=== PATIENT | female | born 1950 | race Caucasian/White ===

== ENCOUNTER 2022-04-09 10:22 | Emergency (ER) | payer MEDICARE, BC, SELFPAY ==
[2022-04-09 10:24] VITALS: BP 154/90; PULSE 79; RESP 18; TEMP 37.4; O2SAT 97; BMI 33.8
[2022-04-09 10:28] VITALS: BP 154/90; PULSE 76; O2SAT 97
--- NOTE | 2022-04-09 11:02 | HMH.EDGENADL ---
ED Disposition Clinical Impression: Dental abscess Disposition: Home, Self-Care Condition on Discharge: Good Instructions: DI for Tooth Abscess Additional Instructions: Stop taking amoxicillin/clavulanic acid. Start clindamycin as prescribed. First dose today at 5 PM. Sleep with your head elevated on several pillows to help reduce swelling. [place] as needed for pain. Follow-up with your dentist next week. Additional instructions for DENTAL PROBLEMS: See a dentist as soon as possible for further evaluation. Return immediately if you have an uncontrollable fever greater than 102 degrees, difficulty breathing or shortness of breath, persistent vomiting, or inability to swallow. Additional instructions for CONTROLLED SUBSTANCES: You have been prescribed a medication that is a controlled substance. Controlled substances include pain medications known as opiates and sedative nerve medications known as benzodiazepines. Tramadol, fioricet, and gabapentin are also controlled substances. Some common opiates include: Codeine (such as Tylenol #3) Hydrocodone (Vicodin, Lortab, Lorcet, [place]) Oxycodone (Percocet, Percodan, Oxycodone, Oxy IR) Some common benzodiazepines include: Diazepam (Valium) Lorazepam (Ativan) Alprazolam (Xanax) Clonazepam (Klonopin) Oxazepam (Serax) All of these controlled substances are highly addictive and frequently abused. Misuse can and frequently does lead to addiction as well as overdose and . Medication should be stored in a locked cabinet or other secure storage unit. Do not store the medication in a motor vehicle. Short term supplies, 3 days or less, are prescribed because of the highly addictive nature of the medication. Any of the controlled substance medication NOT taken should be disposed of properly and NOT SAVED. The recommended method of disposing of unused medications is: Place the medicines in a sealable plastic bag. If the medicine is a solid, crush it or add water to dissolve it. Add something undesirable (cat litter, coffee grounds, etc.) Dispose of sealed bag in household trash Do not flush or pour unused medicines down a sink or drain. Controlled substances should not be shared, given away or sold. Because of the addictive nature and frequent abuse, these medications are sometimes stolen. These medications should be kept in a safe place where they cannot be stolen. Do not keep them in your car or purse. Lost or stolen prescriptions for controlled substances WILL NOT BE REFILLED in this emergency department, regardless of whether a police report was filed. Prescriptions: Hydrocod/Acet 5/325 mg [[place] 5/325mg tablet] 1 tab PO Q6HP PRN #10 tab PRN Reason: Pain Transmission Status: Received by [facility] clindamycin HCL [Clindamycin HCl] 300 mg PO QID #40 cap Transmission Status: Received by [facility] Referrals: Deyanira Jenkins MD [Primary Care Provider] - - Critical Care Critical Care Time: No Attestation: On 04/09/22, the high probability of a clinically significant, sudden or life threatening deterioration of the following system(s) required my full and direct attention, intervention and personal management. The time I documented below is in addition to time spent performing reported procedures but includes the following listed in this critical care notation. Medical Decision Making - Juan Inquiry Pt receiving controlled substance: Yes Juan was queried for this patient: Yes Risks and benefits of using a controlled substance: were discussed with pt by me Vital Signs: 04/09/22 10:24 04/09/22 10:28 04/09/22 11:23 Temperature 99.3 F Temperature Source Oral Pulse Rate 76 71 Pulse Rate [Left Radial] 79 Respiratory Rate 18 18 Blood Pressure 154/90 H 144/78 H Blood Pressure [Left Arm] 154/90 H Blood Pressure Mean 111 104 Blood Pressure Mean [Left Arm] 111 Blood Pressure Source [Left Arm]
--- NOTE | 2022-04-09 11:09 | PC.NURSE ---
ELIAZAR FLORES at
[2022-04-09 11:23] VITALS: BP 144/78; PULSE 71; RESP 18; O2SAT 93
--- NOTE | 2022-04-09 11:50 | PC.NURSE ---
checked on pt at this time, pt resting in bed, given warm blanket. Family at BS. Will continue to monitor
--- NOTE | 2022-04-09 12:37 | PC.NURSE ---
pt reports her teeth are hurting, reports she has not taken anything for pain this morning, states has been taking tylenol and ibuprofen at home. Notified ER MD who gave verbal order for tylenol and ibuprofen po. Pt also states its time for her home dose of lorazepam, notified ER MD who states okay for pt to take her own home medication of lorazepam at this time.
[2022-04-09 13:31] VITALS: BP 152/78; PULSE 78; RESP 18; TEMP 36.6; O2SAT 98
== END 2022-04-09 13:31 | disposition home or self-care (01) ==
PROVIDERS: Emergency Provider Emergency Medicine; PCP Family Medicine
DX: K04.7 Periapical abscess without sinus (principal); Z79.899 Other long term (current) drug therapy
CPT/HCPCS: 96365; 99284

== ENCOUNTER 2022-05-18 22:34 | Emergency (ER) | payer MEDICARE, BC, SELFPAY ==
[2022-05-19 01:22] VITALS: BP 171/104; PULSE 79; RESP 18; TEMP 37.6; O2SAT 97; BMI 27.4
[2022-05-19 01:23] VITALS: BP 170/98; PULSE 79; RESP 18; TEMP 36.8; O2SAT 99
--- NOTE | 2022-05-19 01:57 | HMH.EDWNDL ---
ED Disposition Clinical Impression: Laceration of hand Qualifiers: Encounter type: initial encounter Foreign body presence: without foreign body Laterality: left Qualified Code(s): S61.412A - Laceration without foreign body of left hand, initial encounter Disposition: Home, Self-Care Condition on Discharge: Good Instructions: DI for Laceration Repair Additional Instructions: sutures out 10-12 days Referrals: Deyanira Jenkins MD [Primary Care Provider] - - Critical Care Critical Care Time: No Attestation: On 05/18/22, the high probability of a clinically significant, sudden or life threatening deterioration of the following system(s) required my full and direct attention, intervention and personal management. The time I documented below is in addition to time spent performing reported procedures but includes the following listed in this critical care notation. Medical Decision Making - Medical Records Medical records reviewed: Yes: I reviewed the patient's medical records. - Juan Inquiry Pt receiving controlled substance: No Vital Signs: 05/19/22 01:22 Temperature 99.6 F Temperature Source Oral Pulse Rate [Right] 79 Respiratory Rate 18 Blood Pressure [Right Arm] 171/104 H Blood Pressure Mean [Right Arm] 126 02 Sat by Pulse Oximetry 97 Oxygen Delivery Method Room Air Medical Decision Narrative: sutures out 10 days and recheck if any problems Wound/Laceration HPI - General Chief Complaint: Wound/Laceration Stated Complaint: LAC Time Seen by Provider: 05/19/22 01:57 Mode of Arrival: Ambulatory Source of Information: Patient, Relative, Medical Record Limitations: No Limitations Description of Symptoms (Recalled from ER Triage Doc. by RN): pt arrived in the ER with her son after a fall. pt reports to have fallen in the hallway of her home and got a laceration to her left hand - History of Present Illness HPI narrative: lac at home to lt hand- denied any sig injury from fall except lac Onset (ago): hour(s) Extremity Location: Left: hand Place: home Patient tetanus UTD: No Context: fall Associated symptoms: none - Related Data Home Medications Medication Instructions Recorded Confirmed Escitalopram Oxalate [Lexapro] 20 mg PO BID 11/12/18 04/09/22 LORazepam [Lorazepam 2mg Tablet] 2 mg PO TID 11/12/18 04/09/22 Metoprolol Tartrate [Lopressor 25 mg PO DAILY 11/12/18 04/09/22 25mg tablet] Simvastatin [Zocor] 20 mg PO DAILY 11/12/18 04/09/22 Amoxicillin/Potassium Clav 500 mg PO TID 04/09/22 04/09/22 [Augmentin 500mg tab] Omeprazole [Omeprazole 20mg 20 mg PO DAILY 04/09/22 04/09/22 Capsule] Previous Rx's Medication Instructions Recorded Hydrocod/Acet 5/325 mg [[place] 1 tab PO Q6HP PRN #10 tab 04/09/22 5/325mg tablet] clindamycin HCL [Clindamycin HCl] 300 mg PO QID #40 cap 04/09/22 Allergies Allergy/AdvReac Type Severity Reaction Status Date / Time No Known Allergies Allergy Verified 12/28/18 17:22 [facility] History - Hepatitis A Screen Attestation statement:: This patient has been screened for Hepatitis A risk factors. I have reviewed the patient's past medical history: Yes Medical History: Denies:: Diabetes Mellitus Type 1, Diabetes Mellitus Type 2 - Social History Alcohol Intake: never Occupational Status: other Household Members: other ROS Obtained: Yes All systems reviewed & no additional complaints - Constitutional Constitutional: Denies fever(s) - Eyes Eyes: Denies change in vision - ENT Ears, Nose, Mouth, and Throat: Denies sore throat - Cardiovascular Cardiovascular: Denies chest pain - Respiratory Respiratory: Denies shortness of breath - Gastrointestinal Gastrointestingal: Denies: abdominal pain - Genitourinary Female Genitourinary: Denies hematuria - Musculoskeletal Musculoskeletal: Denies joint pain - Integumentary/Breasts Skin/Breast: Reports as per HPI, Denies rash, Reports other (1 cm v shaped lac )
== END 2022-05-19 00:15 | disposition home or self-care (01) ==
PROVIDERS: Emergency Provider Emergency Medicine; PCP Family Medicine
DX: S61.412A Laceration without foreign body of left hand, initial encounter (principal); Z23 Encounter for immunization; W19.XXXA Unspecified fall, initial encounter; Y92.008 Other place in unspecified non-institutional (private) residence as the place of occurrence of the external cause
CPT/HCPCS: 12001; 90471; 90715; 99283

== ENCOUNTER 2022-05-21 16:24 | Emergency (ER) | payer MEDICARE, BC, SELFPAY ==
[2022-05-21 16:51] VITALS: BP 118/70; PULSE 89; RESP 16; TEMP 37.5; O2SAT 96; BMI 33.3
--- NOTE | 2022-05-21 17:05 | HMH.EDUTC ---
[facility] Disposition Clinical Impression: Exposure to COVID-19 virus, Viral syndrome Disposition: Home, Self-Care Condition on Discharge: Good Instructions: DI for COVID-19 (Suspected or Confirmed ), Preventing the Spread of Coronavirus Discharge Instructions Additional Instructions: Drink plenty of fluids. Take tylenol for pain or fever. Return if you begin to have difficulty breathing. Follow up with your regular doctor. GO TO THE ER FOR ANY WORSENING SYMPTOMS Quarantine until you know the results of your covid-19 test. Notify your school or workplace of your results and follow their instructions regarding return to work/school. Referrals: Deyanira Jenkins MD [Primary Care Provider] - Time of Disposition: 17:14 Medical Decision Making - Medical Records Medical records reviewed: No: I reviewed the patient's medical records. - Juan Inquiry Pt receiving controlled substance: No Vital Signs: 05/21/22 16:51 05/21/22 17:25 Temperature 99.5 F 99.5 F Temperature Source Oral Pulse Rate 89 Pulse Rate [Left] 89 Respiratory Rate 16 16 Blood Pressure 118/70 Blood Pressure [Right Arm] 118/70 Blood Pressure Mean [Right Arm] 86 Blood Pressure Position Sitting 02 Sat by Pulse Oximetry 96 Oxygen Delivery Method Room Air [facility] HPI - General Stated complaint: wants covid test Time Seen by Provider: 05/21/22 17:05 Description of Symptoms (Recalled from Triage Doc. by RN): patient comes in for covid test. patient was exposed but has no symptoms HEENT Symptoms (Recalled from RN notes): No Resp Symptoms (Recalled from RN notes): No Skin Symptoms (Recalled from RN notes): No MS Symptoms (Recalled from RN notes): No Functional Status (Recalled from RN notes): n/a - History of Present Illness Provider Complaint: She states that for the past 4 days she has had chest congestion, body aches and she has felt bad. - Related Data Home Medications Medication Instructions Recorded Confirmed Escitalopram Oxalate [Lexapro] 20 mg PO BID 11/12/18 04/09/22 LORazepam [Lorazepam 2mg Tablet] 2 mg PO TID 11/12/18 04/09/22 Metoprolol Tartrate [Lopressor 25 mg PO DAILY 11/12/18 04/09/22 25mg tablet] Simvastatin [Zocor] 20 mg PO DAILY 11/12/18 04/09/22 Amoxicillin/Potassium Clav 500 mg PO TID 04/09/22 04/09/22 [Augmentin 500mg tab] Omeprazole [Omeprazole 20mg 20 mg PO DAILY 04/09/22 04/09/22 Capsule] Previous Rx's Medication Instructions Recorded Hydrocod/Acet 5/325 mg [[place] 1 tab PO Q6HP PRN #10 tab 04/09/22 5/325mg tablet] clindamycin HCL [Clindamycin HCl] 300 mg PO QID #40 cap 04/09/22 Allergies Allergy/AdvReac Type Severity Reaction Status Date / Time No Known Allergies Allergy Verified 12/28/18 17:22 - Worker's Comp Is this a Worker's Comp case?: No [facility] History - Hepatitis A Screen Attestation statement:: This patient has been screened for Hepatitis A risk factors. I have reviewed the patient's past medical history: Yes Medical History: Denies:: Diabetes Mellitus Type 1, Diabetes Mellitus Type 2 - Social History Alcohol Intake: never Occupational Status: other Household Members: other ROS Obtained: Yes All systems reviewed & no additional complaints - Constitutional Constitutional: Reports as per HPI - Eyes Eyes: Denies eye discharge - ENT Ears, Nose, Mouth, and Throat: Reports as per HPI - Cardiovascular Cardiovascular: Denies chest pain - Respiratory Respiratory: Reports chest congestion, Reports cough Physical Exam - General General appearance: alert, in no apparent distress - Head Head exam: atraumatic, normocephalic, normal inspection - Eye Eye exam: Present: normal appearance, PERRL, EOMI - ENT ENT exam: Present: normal exam, normal oropharynx, mucous membranes moist, TM's normal bilaterally, normal external ear exam - Neck Neck exam: Present: normal inspection, full ROM, trachea midline. Absent: meningis
[2022-05-21 17:25] VITALS: BP 118/70; PULSE 89; RESP 16; TEMP 37.5; O2SAT 96
== END 2022-05-21 17:25 | disposition home or self-care (01) ==
PROVIDERS: Emergency Provider Nurse Practitioner Family; PCP Family Medicine
DX: Z20.822 Contact with and (suspected) exposure to COVID-19 (principal); B34.9 Viral infection, unspecified
CPT/HCPCS: 99212; C9803; G0463; U0003; U0005

== ENCOUNTER 2022-05-28 15:48 | Emergency (ER) | payer MEDICARE, BC, SELFPAY ==
[2022-05-28 15:49] VITALS: BP 176/89; PULSE 83; RESP 17; TEMP 37.1; O2SAT 97; BMI 33.3
[2022-05-28 16:12] VITALS: BP 176/89; PULSE 83; RESP 17; TEMP 37.1; O2SAT 97; BMI 33.3
--- NOTE | 2022-05-28 16:38 | HMH.EDUTC ---
[facility] [place] Clinical Impression: Dental abscess Disposition: Home, Self-Care Condition on Discharge: Good Instructions: Tooth Abscess, Clindamycin Additional Instructions: Take medication as prescribed Follow up with your Dentist for further evaluation and treatment Return if needed Straight to ER if any life threatening symptoms Follow up with your Family Doctor if no improvement Prescriptions: clindamycin HCL [Clindamycin HCl] 300 mg PO Q8H 7 Days #14 cap Transmission Status: Sent to [facility] Ondansetron [Zofran 4mg ODT] 4 mg PO BID PRN #6 tab PRN Reason: Nausea Transmission Status: [facility] to [facility] Referrals: Deyanira Jenkins MD [Primary Care Provider] - As needed Time of Disposition: 16:53 Medical Decision Making - Juan Inquiry Pt receiving controlled substance: No Juan was queried for this patient: No Vital Signs: 05/28/22 15:49 05/28/22 16:12 Temperature 98.7 F 98.7 F Temperature Source Oral Oral Pulse Rate [Left Radial] 83 83 Respiratory Rate 17 17 Blood Pressure [Left Arm] 176/89 H 176/89 H Blood Pressure Mean [Left Arm] 118 118 Blood Pressure Source [Left Arm] Automatic Cuff Automatic Cuff Blood Pressure Position [Left Arm] Sitting Sitting 02 Sat by Pulse Oximetry 97 97 Oxygen Delivery Method Room Air Room Air Orders (Tests/Meds): ORDERS Category Date Time Status Covid-19 Nasal PCR ([facility]) Routine Lab 05/28/22 16:45 Ordered Medical Decision Narrative: medication discussed with pharmacy [facility] [place]PI - General Stated complaint: sick at stomach, cramp Time Seen by Provider: 05/28/22 16:38 Mode of Arrival: Ambulatory Source of Information: Patient Limitations: No Limitations Description of Symptoms (Recalled from Triage Doc. by RN): c/o abdominal pain, tooth infection and suture removal HEENT Symptoms (Recalled from RN notes): Yes Resp Symptoms (Recalled from RN notes): No Skin Symptoms (Recalled from RN notes): No MS Symptoms (Recalled from RN notes): No Functional Status (Recalled from RN notes): na - History of Present Illness Provider Complaint: Patient states that she needed to get her sutures removed but she is also having nausea, nasal congestion and feels like she has another dental infection from broken teeth States that she is going to [facility] to have dental extractions and dentures but hasnt had any yet and most of her bottom teeth are broken and decaying States that also she was around someone last week with [facility] and wanted to get tested - Related Data Home Medications Medication Instructions Recorded Confirmed Escitalopram Oxalate [Lexapro] 20 mg PO BID 11/12/18 04/09/22 LORazepam [Lorazepam 2mg Tablet] 2 mg PO TID 11/12/18 04/09/22 Metoprolol Tartrate [Lopressor 25 mg PO DAILY 11/12/18 04/09/22 25mg tablet] Simvastatin [Zocor] 20 mg PO DAILY 11/12/18 04/09/22 Amoxicillin/Potassium Clav 500 mg PO TID 04/09/22 04/09/22 [Augmentin 500mg tab] Omeprazole [Omeprazole 20mg 20 mg PO DAILY 04/09/22 04/09/22 Capsule] Previous Rx's Medication Instructions Recorded Hydrocod/Acet 5/325 mg [[place] 1 tab PO Q6HP PRN #10 tab 04/09/22 5/325mg tablet] clindamycin HCL [Clindamycin HCl] 300 mg PO QID #40 cap 04/09/22 Ondansetron [Zofran 4mg ODT] 4 mg PO BID PRN #6 tab 05/28/22 clindamycin HCL [Clindamycin HCl] 300 mg PO Q8H 7 Days #14 cap 05/28/22 Allergies Allergy/AdvReac Type Severity Reaction Status Date / Time No Known Allergies Allergy Verified 12/28/18 17:22 - Worker's Comp Is this a Worker's Comp case?: No [facility] History - Hepatitis A Screen Attestation statement:: This patient has been screened for Hepatitis A risk factors. I have reviewed the patient's past medical history: Yes Medical History: Denies:: Diabetes Mellitus Type 1, Diabetes Mellitus Type 2 - Social History Alcohol Intake: never Occupational Status: other Household Members: other ROS Obtained: Yes All systems review
[2022-05-28 17:18] VITALS: BP 176/89; PULSE 83; RESP 17; TEMP 37.1; O2SAT 97
== END 2022-05-28 17:19 | disposition home or self-care (01) ==
PROVIDERS: Emergency Provider Nurse Practitioner; PCP Family Medicine
DX: K04.7 Periapical abscess without sinus (principal); S02.5XXA Fracture of tooth (traumatic), initial encounter for closed fracture; R10.9 Unspecified abdominal pain; R11.0 Nausea; R09.81 Nasal congestion; Z20.822 Contact with and (suspected) exposure to COVID-19; Z48.02 Encounter for removal of sutures
CPT/HCPCS: 99213; C9803; G0463; U0003; U0005

== ENCOUNTER 2022-05-30 22:22 | Emergency (ER) | payer MEDICARE, BC, SELFPAY ==
[2022-05-30 22:23] VITALS: BP 122/82; PULSE 79; RESP 16; TEMP 37.2; O2SAT 93; BMI 33.3
[2022-05-31] VITALS (7 sets, daily range): BP systolic 116–139; BP diastolic 74–107; PULSE 76–85; RESP 18; TEMP 36.8; O2SAT 93–99
[2022-05-31 00:03] LABS: Microscopic, Urine URINE MICROSCOPIC (MICROSCOPIC)
[2022-05-31 00:08] LABS: Potassium 4.2 mmoL/L (3.5-5.1); Sodium 139 mmol/L (136-145)
[2022-05-31 00:10] LABS: Alanine Aminotransferase 18 U/L (12-78); Albumin Level 4.1 g/dl (3.5-5.0); Albumin/Globulin Ratio 1.4 (1.1-1.8); Alkaline Phosphatase 70 U/L (38-126); Aspartate Amino Transferase 26 U/L (14-36); Bilirubin,Total 0.7 mg/dl (0.2-1.3); Blood Urea Nitrogen 15 mg/dl (7-17); Carbon Dioxide 30 mmol/L (22.0-30.0); Creatinine Clearance Estimated 71 mL/min (50-200); Estimated Glomerular Filt Rate 55 ml/min (>60); GFR (African American) 67 ML/MIN (>60); Total Protein,Serum 7.1 g/dl (6.3-8.2)
[2022-05-31 00:11] LABS: Appearance,Urine CLEAR (Clear); Bilirubin,Urine Negative (Negative); Blood, Urine Negative (Negative); Calcium 9.2 mg/dl (8.4-10.2); Color,Urine YELLOW (Yellow); Glucose 119 mg/dl (74-100); Glucose,Urine (UA) Negative (Negative); Ketones,Urine Negative (Negative); Lactic Acid 1.2 mmol/L (0.7-2.1); Leukocyte Esterase,Urine Negative (Negative); Nitrate,Urine Negative (Negative); PH,Urine 5.5 (5.0-8.5); Protein,Urine Negative (Negative); Specific Gravity, Urine 1.025 (1.005-1.030); Urobilinogen,Urine 0.2 EU/dl (0.2)
[2022-05-31 00:13] LABS: Basophils # 0.1 K/mm3 (0-0.2); Basophils % 0.8 % (0.1-2.0); Eosinophils # 0.1 K/mm3 (0.0-0.4); Eosinophils % 0.8 % (0.1-12.0); Hematocrit 41.6 % (37.0-47.0); Hemoglobin 13.4 g/dL (12.2-16.2); Lymphocytes # 1.8 K/mm3 (0.7-4.5); Lymphocytes % 21.3 % (10-50); Mean Corpuscular HGB Conc 32.2 g/dL (31.8-35.4); Mean Corpuscular Hemoglobin 28.6 pg (27.0-31.2); Mean Corpuscular Volume 88.8 fl (81-99); Mean Platelet Volume 8.2 fl (7.4-10.4); Monocytes # 0.4 K/mm3 (0.1-1.0); Monocytes % 4.4 % (1.7-9.3); Neutrophils # 6.1 K/mm3 (1.8-7.8); Neutrophils % 72.7 % (37.0-80.0); Platelet Count 248 K/mm3 (142-424); Red Blood Count 4.69 M/mm3 (4.20-5.40); White Blood Count 8.4 K/mm3 (4.8-10.8)
[2022-05-31 00:21] LABS: Bacteria,Urine Trace /lpf; WBC,Urine Occasional #/hpf (0-3)
[2022-05-31 00:39] LABS: Erythrocyte Sedimentation Rate 14 mm/hr (0-30)
[2022-05-31 00:52] LABS: Anion Gap 8.2 mEq/L (5-15); Chloride 105 mmol/L (98-107)
[2022-05-31 01:13] LABS: Procalcitonin 0.035 ng/mL (0.0-2.0)
--- NOTE | 2022-05-31 02:45 | PC.NURSE ---
Patient is currently speaking to regarding current condition and possible plan of care.
--- NOTE | 2022-05-31 02:47 | HMH.EDPSYCH ---
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 The time I documented below is in addition to time spent performing reported procedures but includes the following listed in this critical care notation. Medical Decision Making - Medical Records Medical records reviewed: Yes: I reviewed the patient's medical records. - Juan Inquiry Pt receiving controlled substance: No Vital Signs: 05/30/22 22:23 05/31/22 00:00 05/31/22 00:30 Temperature 99 F Temperature Source Oral Pulse Rate 76 78 Pulse Rate [Right] 79 Respiratory Rate 16 Blood Pressure 122/74 120/75 Blood Pressure [Right Arm] 122/82 Blood Pressure Mean [Right Arm] 95 02 Sat by Pulse Oximetry 93 L 93 L 93 L Oxygen Delivery Method Room Air 05/31/22 01:00 05/31/22 01:30 Temperature Temperature Source Pulse Rate 79 79 Pulse Rate [Right] Respiratory Rate Blood Pressure 116/77 119/77 Blood Pressure [Right Arm] Blood Pressure Mean [Right Arm] 02 Sat by Pulse Oximetry 94 L 93 L Oxygen Delivery Method - Lab Data Lab results reviewed: Yes: I reviewed the patient's lab results. Lab Results 05/30/22 23:30: Urine Color Yellow, Urine Appearance Clear, Urine pH 5.5, Ur Specific [place] 1.025, Urine Protein Negative, Urine Glucose (UA) Negative, Urine Ketones Negative, Urine Blood Negative, Urine Nitrate Negative, Urine Bilirubin Negative, Urine Urobilinogen 0.2, Ur Leukocyte Esterase Negative, Urine RBC None, Urine WBC Occasional, Ur Squamous Epith Cells 5-10, Urine Bacteria Trace 05/30/22 23:30: WBC 8.4, RBC 4.69, Hgb 13.4, Hct 41.6, MCV 88.8, MCH 28.6, MCHC 32.2, RDW 13.0, Plt Count 248, MPV 8.2, Neut % (Auto) 72.7, Lymph % (Auto) 21.3, [place] % (Auto) 4.4, Eos % (Auto) 0.8, Baso % (Auto) 0.8, Neut # (Auto) 6.1, Lymph # (Auto) 1.8, [place] # (Auto) 0.4, Eos # (Auto) 0.1, Baso # (Auto) 0.1, ESR 14 05/30/22 23:30: Sodium 139, Potassium 4.2, Chloride 105, Carbon Dioxide 30, Anion Gap 8.2, BUN 15, Creatinine 1.00, Estimated Creat Clear 71, Estimated GFR 55 L, Est GFR ( Amer) 67, Glucose 119 H, Calcium 9.2, Total Bilirubin 0.7, AST 26, ALT 18, Alkaline Phosphatase 70, Total Protein 7.1, Albumin 4.1, Globulin 3.0, Albumin/Globulin Ratio 1.4, Procalcitonin 0.035 05/30/22 23:30: Lactate 1.2 Result diagrams: 05/30/22 23:30 05/30/22 23:30 Orders (Tests/Meds): ED MEDICATIONS Generic Name Dose Route Start Last Admin Trade Name Freq PRN Reason Stop Dose Admin Sodium Chloride 1,000 mls @ 999 mls/hr 05/31/22 02:45 Sod Chlor 0.9% 1000ml Bag IV 05/31/22 03:45 .Q1H1M [facility] ORDERS Category Date Time Status Diarrhea 23 Panel, PCR Stat Lab 05/31/22 00:46 Ordered Rapid PCR Covid and Flu A/B Stat Lab 05/30/22 23:56 Ordered Blood Culture Stat Micro 05/31/22 01:00 Received Medical Decision Narrative: pt with prob depression with psychotic features and will need eval by joey arellano Psych HPI - General Chief Complaint: Psychiatric Symptoms Stated Complaint: possible reaction to medication; hallucinations Time Seen by Provider: 05/31/22 02:47 Mode of Arrival: Ambulatory Source of Information: [facility]
[2022-05-31 03:17] LABS: Ethyl Alcohol < 10 mg/dl (0-10)
[2022-05-31 03:18] LABS: Acetaminophen < 10 ug/ml (10-30); Salicylate < 1.0 mg/dL (2.0-20.0)
[2022-05-31 03:22] LABS: Barbiturates Screen,Urine Negative ng/ml (<200)
[2022-05-31 03:23] LABS: Amphetamine/Metha Screen,Urine Negative ng/ml (<1000); Benzodiazepines Screen,Urine Negative ng/ml (<200)
[2022-05-31 03:24] LABS: Cannabinoid Screen,Urine Negative ng/ml (<50)
[2022-05-31 03:25] LABS: Cocaine Screen,Urine Negative ng/ml (<300); Methadone Screen,Urine Negative ng/ml (<300)
[2022-05-31 03:26] LABS: Opiate Screen,Urine Negative ng/ml (<300); Phencyclidine Screen,Urine Negative ng/ml (<25)
[2022-05-31 03:46] LABS: T4 (Thyroxine) 9.3 ug/dl (5.53-11.0)
[2022-05-31 03:59] LABS: Thyroid Stimulating Hormone 3.22 uIU/mL (0.465-4.68)
== END 2022-05-31 03:27 | disposition home or self-care (01) ==
PROVIDERS: Emergency Provider Emergency Medicine; PCP Family Medicine
DX: F32.3 Major depressive disorder, single episode, severe with psychotic features (principal); Z79.899 Other long term (current) drug therapy
CPT/HCPCS: 80053; 80305; 80329; 81001; 83605; 84145; 84436; 84443; 85025; 85651; 87040; 99283

== ENCOUNTER 2022-06-09 12:10 | Emergency (ER) | payer MEDICARE, BC, SELFPAY ==
[2022-06-09] VITALS (7 sets, daily range): BP systolic 117–146; BP diastolic 52–84; PULSE 70–92; RESP 16–17; TEMP 36.6; O2SAT 94–96; BMI 32.5
--- NOTE | 2022-06-09 12:46 | HMH.EDGENADL ---
ED Disposition Clinical Impression: Auditory hallucinations Disposition: Home, Self-Care Condition on Discharge: Good Instructions: DI for Altered Mental Status Additional Instructions: Please keep your scheduled follow-up with psychiatry Prescriptions: risperiDONE [Risperdal 0.25mg Tablet] 0.25 mg PO DAILY #30 tab Transmission Status: Pending to [facility] Referrals: Deyanira Jenkins MD [Primary Care Provider] - - Critical Care Critical Care Time: No Attestation: On 06/09/22, the high probability of a clinically significant, sudden or life threatening deterioration of the following system(s) required my full and direct attention, intervention and personal management. The time I documented below is in addition to time spent performing reported procedures but includes the following listed in this critical care notation. Medical Decision Making - Juan Inquiry Pt receiving controlled substance: No Vital Signs: 06/09/22 12:24 06/09/22 12:30 06/09/22 13:00 Temperature 97.9 F Temperature Source Oral Pulse Rate 85 81 Pulse Rate [Left Radial] 92 H Respiratory Rate 17 16 Blood Pressure 146/84 H Blood Pressure [Right Arm] 140/52 L Blood Pressure Mean 104 Blood Pressure Mean [Right Arm] 81 02 Sat by Pulse Oximetry 94 L 96 95 Oxygen Delivery Method Room Air 06/09/22 13:30 06/09/22 14:00 06/09/22 14:30 Temperature Temperature Source Pulse Rate 76 70 71 Pulse Rate [Left Radial] Respiratory Rate 16 Blood Pressure 124/71 117/72 126/84 Blood Pressure [Right Arm] Blood Pressure Mean 90 88 94 Blood Pressure Mean [Right Arm] 02 Sat by Pulse Oximetry 95 95 95 Oxygen Delivery Method - Lab Data Lab Results 06/09/22 13:04: Urine Color Yellow, Urine Appearance Clear, Urine pH 5.5, Ur Specific [place] 1.020, Urine Protein Negative, Urine Glucose (UA) Negative, Urine Ketones Trace, Urine Blood Negative, Urine Nitrate Negative, Urine Bilirubin Negative, Urine Urobilinogen 1.0, Ur Leukocyte Esterase Trace, Urine RBC None, Urine WBC Occasional, Ur Squamous Epith Cells Occasional, Urine Bacteria Trace Orders (Tests/Meds): ED MEDICATIONS Discontinued Medications Generic Name Dose Route Start Last Admin Trade Name Freq PRN Reason Stop Dose Admin Lidocaine 2 each 06/09/22 12:47 06/09/22 12:59 Lidocaine 5% Transdermal Patch TP 06/09/22 12:48 2 each ONCE ONE Administration ORDERS Category Date Time Status Consult to Behavioral Health [CONS] Stat Cons 06/09/22 12:34 Active Medical Decision Narrative: In review this is a 71-year-old female who presents with auditory hallucinations. She also complains of bilateral hip pain that is most tender over the right greater trochanter. We will treat this with a lidocaine patch and I recommended following up with her PCP in order to set up possible injections. For her auditory hallucinations we did talk with behavioral health team who agreed to come and evaluate the patient. She does not have any suicidal or homicidal ideation so do not think she needs an involuntary hold at this time. Evaluated by the behavioral health team who recommended starting the patient on Risperdal 0.25 mg daily and they will see her for her appointment in a few weeks. Patient is agreeable this plan. Stable for discharge. Return precautions given. General Adult HPI - General Chief complaint: Altered Mental Status Stated complaint: sore hips, feels like loosing her mind Time Seen by Provider: 06/09/22 13:00 Mode of Arrival: Ambulatory Limitations: No Limitations Description of Symptoms (Recalled from ER Triage Doc. by RN): pt to ed c/o joint pain and confusion. pt states she had a fall x2 weeks ago that she was seen and evaluated for. pt states since then she has had joint pain in her hips, knees and lower back.pt denies hitting her head. pt states she is anxious. per son at the bedside, he states she has been having visual [place]
--- NOTE | 2022-06-09 13:00 | PC.NURSE ---
spoke with behavioral health who states she will try to come see pt for consult, dependent on clinic availability.
--- NOTE | 2022-06-09 13:01 | PC.NURSE ---
pt ambulating to restroom
--- NOTE | 2022-06-09 13:01 | PC.NURSE ---
pt up to bathroom getting a urine sample
--- NOTE | 2022-06-09 13:02 | PC.NURSE ---
pt ambulatory to restroom
[2022-06-09 13:16] LABS: Microscopic, Urine URINE MICROSCOPIC (MICROSCOPIC)
[2022-06-09 13:19] LABS: Appearance,Urine CLEAR (Clear); Bilirubin,Urine Negative (Negative); Blood, Urine Negative (Negative); Color,Urine YELLOW (Yellow); Glucose,Urine (UA) Negative (Negative); Ketones,Urine TRACE (Negative); Leukocyte Esterase,Urine TRACE (Negative); Nitrate,Urine Negative (Negative); PH,Urine 5.5 (5.0-8.5); Protein,Urine Negative (Negative)
[2022-06-09 13:38] LABS: Bacteria,Urine Trace /lpf; Squamous Epithelial Cell,Urine Occasional #/hpf (0-5); WBC,Urine Occasional #/hpf (0-3)
--- NOTE | 2022-06-09 14:22 | PC.NURSE ---
behavioral health CIPHER EXPERT at the bedside
--- NOTE | 2022-06-09 14:26 | PC.NURSE ---
rounded on pt, behavioral health at bs
--- NOTE | 2022-06-10 15:23 | HMH.BHCONS ---
*Admission Date: 06/09/22 *Reason for consult:: hallucinations *History of present illness: I saw patient on 06/09/2022. -she was in the ER; [facility] -her son is at bedside with her She states that she is here for hearing voices. this has been going on for about 10 days now. -she hears full conversations -it is a man and a woman -talking to each other -the woman she doesn't know -the man sounds like her husbands voice -the male voice talks to patient; says ugly things to her -that she is 40 pounds overweight; that her hair style looks terrible on her -things that he would never to say to her when he was living She states that her son will get mad at her. -cause she asks him if he can hear them -he can't -and this agitates him; cause she asks over and over -she is not getting any sleep -she states that they keep her up cause of their talking She states that the noises started out as just being her fan in her room. -started out at night only -this started maybe 2-3 months ago -she would hear her grandfather; mumbling -then she heard people outside -when she turned off her fan; it stopped -but now it is all the time when she is at home -she hasn't heard them since she has been here in the ER Her 3 years ago. -he had cancer; was since since 2013 -but he was on a new medicine and this progressed his decline -he had COPD and lung cancer -He June 11, 2019 -his birthday just passed; on April 20 -their wedding anniversary was May 11 -then her dog on her husbands 1 year anniversary -so she has a lot going on She states that she was not here at the hospital when her . -her and her son had gone home for a rest and to shower and things -and she is glad they were not here -she doesn't think that she would have been able to see it -but she misses him like crazy She states that she doesn't go visit the grave sight. -has told her son that she doesn't want to either -cause she knows he is gone -but she can hear him again She has been on psychotropic medicines for years; she estimates she has been on the following medicines for 14 years. -Ativan 2mg TID -Lexapro 20mg BID RECOMMENDATIONS: 1. She already has an appointment scheduled in the special clinic to see myself on 07/02/2022; keep this appointment. 2. Start Risperdal 0.25mg BID for hallucinations. -I did discuss this with them -discussed risks and benefits -she is willing to try this until she comes to my office -discussed this with the ER doctor; he will send in a prescription for her. TIME IN: 1410 TIME OUT: [facility] History Medical History: Denies:: Diabetes Mellitus Type 1, Diabetes Mellitus Type 2 *Have you ever received a pneumonia vaccine?: Yes *Have you received a flu vaccine this season?: Yes - *Social History Smoking Status: Unknown if ever smoked Alcohol Intake: never *Occupational Status:: other Household Members: other *Travel in the last 8 weeks: None Family Hx:: Unable to obtain Meds Home Medications Medication Instructions Recorded Confirmed Type Escitalopram Oxalate [Lexapro] 20 mg PO BID 11/12/18 04/09/22 History LORazepam [Lorazepam 2mg Tablet] 2 mg PO TID 11/12/18 04/09/22 History Metoprolol Tartrate [Lopressor 25 mg PO DAILY 11/12/18 04/09/22 History 25mg tablet] Simvastatin [Zocor] 20 mg PO DAILY 11/12/18 04/09/22 History Amoxicillin/Potassium Clav 500 mg PO TID 04/09/22 04/09/22 History [Augmentin 500mg tab] Hydrocod/Acet 5/325 mg [[place] 1 tab PO Q6HP PRN #10 tab 04/09/22 Rx 5/325mg tablet] Omeprazole [Omeprazole 20mg 20 mg PO DAILY 04/09/22 04/09/22 History Capsule] clindamycin HCL [Clindamycin HCl] 300 mg PO QID #40 cap 04/09/22 Rx Ondansetron [Zofran 4mg ODT] 4 mg PO BID PRN #6 tab 05/28/22 Rx clindamycin HCL [Clindamycin HCl] 300 mg PO Q8H 7 Days #14 cap 05/28/22 Rx risperiDONE [Risperdal 0.25mg 0.25 mg PO DAILY #30 tab 06/09/22 Rx
== END 2022-06-09 15:05 | disposition home or self-care (01) ==
PROVIDERS: Emergency Provider Student in an Organized Health Care Education/Training Program; PCP Family Medicine
DX: R44.0 Auditory hallucinations (principal); M25.552 Pain in left hip; M25.551 Pain in right hip
CPT/HCPCS: 81001; 99283

== ENCOUNTER 2022-06-16 00:33 | Emergency (ER) | payer MEDICARE, BC, SELFPAY ==
[2022-06-16 00:34] VITALS: BP 147/94; PULSE 99; RESP 18; TEMP 36.8; O2SAT 96; BMI 31.6
[2022-06-16 00:36] VITALS: BMI 27.4
--- NOTE | 2022-06-16 00:38 | CT_ITS ---
PROCEDURE INFORMATION: Exam: CT Head Without Contrast Exam date and time: 06/16/2022 12:49 AM Age: 71 years old Clinical indication: Altered mental status/memory loss; Other: Auditory/visual hallucinations; Additional info: AMS, auditory visual hallucinations TECHNIQUE: Imaging protocol: Computed tomography of the head without contrast. Radiation optimization: All CT scans at this facility use at least one of these dose optimization techniques: automated exposure control; mA and/or kV adjustment per patient size (includes targeted exams where dose is matched to clinical indication); or iterative reconstruction. COMPARISON: No relevant prior studies available. FINDINGS: Brain: Jorf-kg-ldirrhue atrophy. No intracranial hemorrhage. No mass. Few apparent scattered subtle foci of decreased attenuation within periventricular/subcortical white matter. Probable chronic lacunar infarcts about basal ganglia. No definite edema. Cerebral ventricles: No hydrocephalus. Paranasal sinuses: No acute sinusitis. Mastoid air cells: No significant effusion. Orbital cavities: Unremarkable as visualized. Bones/joints: No acute fracture. Soft tissues: Unremarkable. Vasculature: Mild atherosclerotic disease of intracranial arteries. IMPRESSION: Probable chronic microvascular ischemic changes. If symptoms persist, consider MRI.
--- NOTE | 2022-06-16 00:45 | ECG_ITS ---
APPROVED REPORT Exam: Resting ECG HR:92 bpm ECG Measurements Heart Rate 92 AXES ND 141 P 17 QRSd 88 QRS 27 QT 363 T 7 QTc [address] DEVIATION AND MODERATE T-WAVE ABNORMALITY, CONSIDER ANTEROLATERAL ISCHEMIA [-0.1+ mV T-WAVE IN V3-V6] ABNORMAL ECG UNCONFIRMED REPORT Electronically signed by : Desmond Everett MD 06/16/2022 21:00:33
[2022-06-16 01:10] LABS: Microscopic, Urine URINE MICROSCOPIC (MICROSCOPIC)
--- NOTE | 2022-06-16 01:10 | PC.NURSE ---
PT AND FAMILY UPDATED WITH PLAN OF CARE. FAMILY STATES PRIOR PRIOR TO MAY 30, 2022- PT HAD NEVER HAD VISUAL OR AUDITORY HALLUCINATIONS.
[2022-06-16 01:12] LABS: Appearance,Urine CLEAR (Clear); Bilirubin,Urine Negative (Negative); Blood, Urine TRACE-I (Negative); Color,Urine YELLOW (Yellow); Glucose,Urine (UA) Negative (Negative); Ketones,Urine Negative (Negative); Leukocyte Esterase,Urine 1+ (Negative); Nitrate,Urine Negative (Negative); Protein,Urine Negative (Negative); Specific Gravity, Urine 1.025 (1.005-1.030); Urobilinogen,Urine 0.2 EU/dl (0.2)
--- NOTE | 2022-06-16 01:12 | PC.NURSE ---
URINE SAMPLE AND COVID SWAB COLLECTION PERFORMED. PT TOLERATED WELL.
--- NOTE | 2022-06-16 01:27 | HMH.EDPSYCH ---
ED Disposition Clinical Impression: Acute psychosis UTI (urinary tract infection) Qualifiers: Urinary tract infection type: site unspecified Hematuria presence: without hematuria Qualified Code(s): N39.0 - Urinary tract infection, site not specified Disposition: Home, Self-Care Condition on Discharge: Good Instructions: DI for Urinary Tract Infection (UTI), DI for Psychosis Additional Instructions: use meds and call pcp for follow up Prescriptions: levoFLOXacin [Levaquin 500mg tab] 500 mg PO DAILY #7 tab Transmission Status: Sent to [facility] Referrals: Deyanira Jenkins MD [Primary Care Provider] - - Critical Care Critical Care Time: No Attestation: On 06/16/22, the high probability of a clinically significant, sudden or life threatening deterioration of the following system(s) required my full and direct attention, intervention and personal management. The time I documented below is in addition to time spent performing reported procedures but includes the following listed in this critical care notation. Medical Decision Making - Medical Records Medical records reviewed: Yes: I reviewed the patient's medical records. - Juan Inquiry Pt receiving controlled substance: No Vital Signs: 06/16/22 00:34 06/16/22 02:11 Temperature 98.3 F 98.1 F Temperature Source Oral Oral Pulse Rate 78 Pulse Rate [Left Radial] 99 H Respiratory Rate 18 16 Blood Pressure 139/79 Blood Pressure [Right Arm] 147/94 H Blood Pressure Mean [Right Arm] 111 Blood Pressure Source Automatic Cuff Blood Pressure Source [Right Arm] Automatic Cuff Blood Pressure Position Sitting Blood Pressure Position [Right Arm] Sitting 02 Sat by Pulse Oximetry 96 Oxygen Delivery Method Room Air Room Air - Lab Data Lab results reviewed: Yes: I reviewed the patient's lab results. Lab Results 06/16/22 01:03: Urine Color Yellow, Urine Appearance Clear, Urine pH 6.0, Ur Specific [place] 1.025, Urine Protein Negative, Urine Glucose (UA) Negative, Urine Ketones Negative, Urine Blood Trace-i, Urine Nitrate Negative, Urine Bilirubin Negative, Urine Urobilinogen 0.2, Ur Leukocyte Esterase 1+ A, Urine RBC 5-10, Urine WBC 20-50, Ur Squamous Epith Cells 3-5, Urine Bacteria 1+, Urine Mucus 1+ 06/16/22 01:20: ESR 21 06/16/22 01:20: C-Reactive Protein 6.4 H, Procalcitonin 0.043, Salicylates < 1.0 L, Acetaminophen < 10 L 06/16/22 01:20: SARS-CoV-2 (PCR) Not detected, Influenza A Untype (PCR) Not detected, Influenza Type B (PCR) Not detected 06/16/22 01:20: WBC 6.2, RBC 4.47, Hgb 12.8, Hct 42.2, MCV 94.3, MCH 28.5, MCHC 30.2 L, RDW 13.7, Plt Count 243, MPV 8.6, Neut % (Auto) 67.5, Lymph % (Auto) 24.9, [place] % (Auto) 5.4, Eos % (Auto) 1.3, Baso % (Auto) 0.9, Neut # (Auto) 4.2, Lymph # (Auto) 1.5, [place] # (Auto) 0.3, Eos # (Auto) 0.1, Baso # (Auto) 0.1 06/16/22 01:20: Sodium 140, Potassium 3.8, Chloride 108 H, Carbon Dioxide 28, Anion Gap 7.8, BUN 12, Creatinine 0.90, Estimated Creat Clear 57, Estimated GFR 62, Est GFR ( Amer) 75, Glucose 115 H, Calcium 8.8, Total Bilirubin 0.5, AST 26, ALT 18, Alkaline Phosphatase 68, Total Protein 6.6, Albumin 3.8, Globulin 2.8, Albumin/Globulin Ratio 1.4 06/16/22 01:20: Plasma/Serum Alcohol < 10 06/16/22 01:20: Total Bilirubin 0.5, Direct Bilirubin 0.1, Conjugated Bilirubin 0.0, Indirect Bilirubin 0.4, Unconjugated Bilirubin 0.4, AST 25, ALT 18, Alkaline Phosphatase 68, Total Protein 6.6, Albumin 3.8 Result diagrams: 06/16/22 01:20 06/16/22 01:20 Orders (Tests/Meds): ED MEDICATIONS Generic Name Dose Route Start Last Admin Trade Name Freq PRN Reason Stop Dose Admin Sodium Chloride 1,000 mls @ 999 mls/hr 06/16/22 00:45 06/16/22 01:25 Sod Chlor 0.9% 1000ml Bag IV 06/16/22 01:45 999 mls/hr .Q1H1M JOCELYN Administration Ceftriaxone Sodium 1 gm/ 50 mls @ 100 mls/hr 06/16/22 02:15 06/16/22 02:09 Sodium Chloride IV 06/30/22 02:14 100 mls/hr Q24H JOCELYN Administration ORDERS Category Date T
[2022-06-16 01:30] LABS: Coronavirus 19, PCR Not Detected (NotDetected); Influenza A, PCR Not Detected (NotDetected); Influenza B, PCR Not Detected (NotDetected)
[2022-06-16 01:31] LABS: Basophils # 0.1 K/mm3 (0-0.2); Basophils % 0.9 % (0.1-2.0); Eosinophils # 0.1 K/mm3 (0.0-0.4); Eosinophils % 1.3 % (0.1-12.0); Hematocrit 42.2 % (37.0-47.0); Hemoglobin 12.8 g/dL (12.2-16.2); Lymphocytes # 1.5 K/mm3 (0.7-4.5); Lymphocytes % 24.9 % (10-50); Mean Corpuscular HGB Conc 30.2 g/dL (31.8-35.4); Mean Corpuscular Hemoglobin 28.5 pg (27.0-31.2); Mean Corpuscular Volume 94.3 fl (81-99); Mean Platelet Volume 8.6 fl (7.4-10.4); Monocytes # 0.3 K/mm3 (0.1-1.0); Monocytes % 5.4 % (1.7-9.3); Neutrophils # 4.2 K/mm3 (1.8-7.8); Neutrophils % 67.5 % (37.0-80.0); Platelet Count 243 K/mm3 (142-424); Red Blood Count 4.47 M/mm3 (4.20-5.40); Red Cell Distribution Width 13.7 % (11.5-17.5); White Blood Count 6.2 K/mm3 (4.8-10.8)
[2022-06-16 01:35] LABS: WBC,Urine 20-50 #/hpf (0-3)
[2022-06-16 01:36] LABS: Bacteria,Urine 1+ /lpf; Mucus,Urine 1+ /lpf
[2022-06-16 01:42] LABS: Alanine Aminotransferase 18 U/L (12-78); Albumin Level 3.8 g/dl (3.5-5.0); Alkaline Phosphatase 68 U/L (38-126); Aspartate Amino Transferase 25 U/L (14-36); Bilirubin,Direct 0.1 mg/dl (0.0-0.4); Bilirubin,Indirect 0.4 mg/dL (0.0-0.9); Bilirubin,Total 0.5 mg/dl (0.2-1.3); Bilirubin,Unconjugated 0.4 mg/dL (0.0-1.1); Total Protein,Serum 6.6 g/dl (6.3-8.2)
[2022-06-16 01:43] LABS: Amphetamine/Metha Screen,Urine Negative ng/ml (<1000)
[2022-06-16 01:43] LABS: Acetaminophen < 10 ug/ml (10-30); Alanine Aminotransferase 18 U/L (12-78); Albumin Level 3.8 g/dl (3.5-5.0); Albumin/Globulin Ratio 1.4 (1.1-1.8); Alkaline Phosphatase 68 U/L (38-126); Anion Gap 7.8 mEq/L (5-15); Aspartate Amino Transferase 26 U/L (14-36); Bilirubin,Total 0.5 mg/dl (0.2-1.3); Blood Urea Nitrogen 12 mg/dl (7-17); Calcium 8.8 mg/dl (8.4-10.2); Carbon Dioxide 28 mmol/L (22.0-30.0); Chloride 108 mmol/L (98-107); Creatinine Clearance Estimated 57 mL/min (50-200); Estimated Glomerular Filt Rate 62 ml/min (>60); Ethyl Alcohol < 10 mg/dl (0-10); GFR (African American) 75 ML/MIN (>60); Globulin 2.8 g/dL (1.3-3.2); Glucose 115 mg/dl (74-100); Potassium 3.8 mmoL/L (3.5-5.1); Salicylate < 1.0 mg/dL (2.0-20.0); Sodium 140 mmol/L (136-145); Total Protein,Serum 6.6 g/dl (6.3-8.2)
[2022-06-16 01:44] LABS: Barbiturates Screen,Urine Negative ng/ml (<200)
[2022-06-16 01:45] LABS: Benzodiazepines Screen,Urine Negative ng/ml (<200); Cannabinoid Screen,Urine Negative ng/ml (<50)
[2022-06-16 01:46] LABS: Cocaine Screen,Urine Negative ng/ml (<300)
[2022-06-16 01:47] LABS: Methadone Screen,Urine Negative ng/ml (<300); Opiate Screen,Urine Negative ng/ml (<300)
[2022-06-16 01:48] LABS: Phencyclidine Screen,Urine Negative ng/ml (<25)
[2022-06-16 01:48] LABS: C-Reactive Protein 6.4 mg/L (0-4)
[2022-06-16 02:02] LABS: Procalcitonin 0.043 ng/mL (0.0-2.0)
[2022-06-16 02:11] VITALS: BP 139/79; PULSE 78; RESP 16; TEMP 36.7; O2SAT 97
--- NOTE | 2022-06-16 02:16 | PC.NURSE ---
PT/FAMILY AWARE OF WAITING ON RESULTS OF CT FOR DISCHARGE. RADIOLOGY AWARE OF WAITING ON RESULTS AND STATES THEY WILL FOLLOW UP.
[2022-06-16 02:19] LABS: Erythrocyte Sedimentation Rate 21 mm/hr (0-30)
--- NOTE | 2022-06-16 02:21 | PC.NURSE ---
called radiology to check status of ct read, [facility] is reading it at this time.
== END 2022-06-16 02:41 | disposition home or self-care (01) ==
PROVIDERS: Emergency Provider Emergency Medicine; PCP Family Medicine
DX: F23 Brief psychotic disorder (principal); N39.0 Urinary tract infection, site not specified
CPT/HCPCS: 70450; 80053; 80076; 80305; 80329; 81001; 84145; 85025; 85651; 86140; 87086; 93005; 96361; 96374; 99284; C9803; J0696; U0003; U0005

== ENCOUNTER 2022-06-20 07:02 | Emergency (ER) | payer MEDICARE, BC, SELFPAY ==
[2022-06-20] VITALS (8 sets, daily range): BP systolic 115–153; BP diastolic 61–89; PULSE 74–98; RESP 16–18; TEMP 36.6–37; O2SAT 94–98; BMI 25.4
--- NOTE | 2022-06-20 07:30 | PC.NURSE ---
Son sitting at bedside.
[2022-06-20 07:40] LABS: Coronavirus 19, PCR Not Detected (NotDetected); Influenza A, PCR Not Detected (NotDetected); Influenza B, PCR Not Detected (NotDetected)
--- NOTE | 2022-06-20 07:40 | PC.NURSE ---
Talked with the family and pt who states they would like to evaluated by [facility]. Will contact the [facility] for assessment
[2022-06-20 07:43] LABS: Basophils # 0.1 K/mm3 (0-0.2); Basophils % 0.7 % (0.1-2.0); Eosinophils # 0.1 K/mm3 (0.0-0.4); Eosinophils % 1.1 % (0.1-12.0); Hematocrit 42.2 % (37.0-47.0); Hemoglobin 13.3 g/dL (12.2-16.2); Lymphocytes # 1.3 K/mm3 (0.7-4.5); Lymphocytes % 17.4 % (10-50); Mean Corpuscular HGB Conc 31.6 g/dL (31.8-35.4); Mean Corpuscular Hemoglobin 29.2 pg (27.0-31.2); Mean Corpuscular Volume 92.5 fl (81-99); Mean Platelet Volume 8.9 fl (7.4-10.4); Monocytes # 0.3 K/mm3 (0.1-1.0); Monocytes % 4.2 % (1.7-9.3); Neutrophils # 5.6 K/mm3 (1.8-7.8); Neutrophils % 76.6 % (37.0-80.0); Platelet Count 266 K/mm3 (142-424); Red Blood Count 4.56 M/mm3 (4.20-5.40); White Blood Count 7.3 K/mm3 (4.8-10.8)
[2022-06-20 07:45] LABS: Chloride 107 mmol/L (98-107); Potassium 3.5 mmoL/L (3.5-5.1); Sodium 141 mmol/L (136-145)
[2022-06-20 07:48] LABS: Alanine Aminotransferase 21 U/L (12-78); Albumin Level 4.2 g/dl (3.5-5.0); Albumin/Globulin Ratio 1.4 (1.1-1.8); Alkaline Phosphatase 72 U/L (38-126); Anion Gap 11.5 mEq/L (5-15); Aspartate Amino Transferase 34 U/L (14-36); Bilirubin,Total 0.7 mg/dl (0.2-1.3); Blood Urea Nitrogen 15 mg/dl (7-17); Calcium 9.3 mg/dl (8.4-10.2); Carbon Dioxide 26 mmol/L (22.0-30.0); Creatinine Clearance Estimated 55 mL/min (50-200); Estimated Glomerular Filt Rate 62 ml/min (>60); GFR (African American) 75 ML/MIN (>60); Globulin 2.9 g/dL (1.3-3.2); Glucose 158 mg/dl (74-100); Total Protein,Serum 7.1 g/dl (6.3-8.2)
--- NOTE | 2022-06-20 07:49 | PC.NURSE ---
Talked with Kary at the [facility] who took information about pt current situation and will get an assessment set up by phone due to mobile lauren email not working at this time. Will continue to monitor
--- NOTE | 2022-06-20 07:55 | PC.NURSE ---
updated family at pt that we are waiting on a return from the [facility] for further assessment. PT and family verbalize understanding.
--- NOTE | 2022-06-20 08:04 | HMH.EDGENADL ---
ED Disposition Clinical Impression: Acute psychosis Disposition: Home, Self-Care Condition on Discharge: Good Additional Instructions: Call [facility] for psychiatric intake evaluation, contact information provided. Call Karlie Arellano tomorrow for further care. Referrals: Deyanira Jenkins MD [Primary Care Provider] - - Critical Care Critical Care Time: No Attestation: On 06/20/22, the high probability of a clinically significant, sudden or life threatening deterioration of the following system(s) required my full and direct attention, intervention and personal management. The time I documented below is in addition to time spent performing reported procedures but includes the following listed in this critical care notation. Medical Decision Making - Medical Records Medical records reviewed: Yes: I reviewed the patient's medical records. MR Comment: Reviewed emergency department notes from 05/31/22, 06/09/2022 and 06/16/2022, visits for hallucinations. Medical work-up revealed possible UTI on 06/16/2022 and patient was started on Levaquin. Culture showed multiple organisms, contamination. Patient was seen by Karlie Arellano from behavioral medicine on 06/09/2022, note reviewed. - Juan Inquiry Pt receiving controlled substance: No Vital Signs: 06/20/22 07:00 06/20/22 07:30 06/20/22 08:00 Temperature 98.6 F Temperature Source Oral Pulse Rate 97 H 97 H Pulse Rate [Left Radial] 98 H Respiratory Rate 18 Blood Pressure 115/61 127/77 Blood Pressure [Right Arm] 129/77 Blood Pressure Mean 79 93 Blood Pressure Mean [Right Arm] 94 Blood Pressure Source [Right Arm] Automatic Cuff Blood Pressure Position [Right Arm] Sitting 02 Sat by Pulse Oximetry 96 95 95 Oxygen Delivery Method Room Air 06/20/22 08:52 06/20/22 09:01 06/20/22 09:30 Temperature Temperature Source Pulse Rate 94 H 96 H 92 H Pulse Rate [Left Radial] Respiratory Rate 16 16 Blood Pressure 140/78 153/80 H 148/89 H Blood Pressure [Right Arm] Blood Pressure Mean 98 104 108 Blood Pressure Mean [Right Arm] Blood Pressure Source [Right Arm] Blood Pressure Position [Right Arm] 02 Sat by Pulse Oximetry 97 94 L 95 Oxygen Delivery Method 06/20/22 10:18 Temperature Temperature Source Pulse Rate 92 H Pulse Rate [Left Radial] Respiratory Rate 18 Blood Pressure 143/78 H Blood Pressure [Right Arm] Blood Pressure Mean 99 Blood Pressure Mean [Right Arm] Blood Pressure Source [Right Arm] Blood Pressure Position [Right Arm] 02 Sat by Pulse Oximetry 95 Oxygen Delivery Method - Lab Data Lab Results 06/20/22 07:13: WBC 7.3, RBC 4.56, Hgb 13.3, Hct 42.2, MCV 92.5, MCH 29.2, MCHC 31.6 L, RDW 14.0, Plt Count 266, MPV 8.9, Neut % (Auto) 76.6, Lymph % (Auto) 17.4, [place] % (Auto) 4.2, Eos % (Auto) 1.1, Baso % (Auto) 0.7, Neut # (Auto) 5.6, Lymph # (Auto) 1.3, [place] # (Auto) 0.3, Eos # (Auto) 0.1, Baso # (Auto) 0.1 06/20/22 07:13: Sodium 141, Potassium 3.5, Chloride 107, Carbon Dioxide 26, Anion Gap 11.5, BUN 15, Creatinine 0.90, Estimated Creat Clear 55, Estimated GFR 62, Est GFR ( Amer) 75, Glucose 158 H, Calcium 9.3, Total Bilirubin 0.7, AST 34, ALT 21, Alkaline Phosphatase 72, Total Protein 7.1, Albumin 4.2, Globulin 2.9, Albumin/Globulin Ratio 1.4 06/20/22 07:13: Salicylates < 1.0 L, Acetaminophen < 10 L 06/20/22 07:13: Plasma/Serum Alcohol < 10 06/20/22 07:35: SARS-CoV-2 (PCR) Not detected, Influenza A Untype (PCR) Not detected, Influenza Type B (PCR) Not detected 06/20/22 08:30: Urine Color Dk yellow, Urine Appearance Sl cloudy, Urine pH 6.5, Ur Specific [place] 1.020, Urine Protein Trace, Urine Glucose (UA) Negative, Urine Ketones 2+, Urine Blood Negative, Urine Nitrate Negative, Urine Bilirubin 1+ A, Urine Urobilinogen 0.2, Ur Leukocyte Esterase 1+ A, Urine RBC 3-5, Urine WBC 5-10, Ur Squamous Epith Cells 20-50, Amorphous Sediment Trace, Urine Bacteria 1+, Urine Mucus 1+ 06/20/22 08:30: Urine Opiate
[2022-06-20 08:34] LABS: Microscopic, Urine URINE MICROSCOPIC (MICROSCOPIC)
[2022-06-20 08:35] LABS: Appearance,Urine SL CLOUDY (Clear); Blood, Urine Negative (Negative); Color,Urine DK YELLOW (Yellow); Glucose,Urine (UA) Negative (Negative); Ketones,Urine 2+ (Negative); Leukocyte Esterase,Urine 1+ (Negative); Nitrate,Urine Negative (Negative); PH,Urine 6.5 (5.0-8.5); Protein,Urine TRACE (Negative); Urobilinogen,Urine 0.2 EU/dl (0.2)
[2022-06-20 08:37] LABS: Acetaminophen < 10 ug/ml (10-30); Ethyl Alcohol < 10 mg/dl (0-10); Salicylate < 1.0 mg/dL (2.0-20.0)
[2022-06-20 08:40] LABS: Bilirubin,Urine 1+ (Negative)
[2022-06-20 08:47] LABS: Amorphous Sediment,Urine Trace /lpf; Amphetamine/Metha Screen,Urine Negative ng/ml (<1000); Bacteria,Urine 1+ /lpf; Barbiturates Screen,Urine Negative ng/ml (<200); Mucus,Urine 1+ /lpf; Squamous Epithelial Cell,Urine 20-50 #/hpf (0-5)
[2022-06-20 08:49] LABS: Cannabinoid Screen,Urine Negative ng/ml (<50); Cocaine Screen,Urine Negative ng/ml (<300)
[2022-06-20 08:50] LABS: Methadone Screen,Urine Negative ng/ml (<300)
[2022-06-20 08:51] LABS: Opiate Screen,Urine Negative ng/ml (<300); Phencyclidine Screen,Urine Negative ng/ml (<25)
[2022-06-20 08:54] LABS: Benzodiazepines Screen,Urine Negative ng/ml (<200)
--- NOTE | 2022-06-20 09:16 | PC.NURSE ---
rounded on pt, updated family that we will fu with [facility] to get an update. Pt asking if she can take her home medicine, aware
--- NOTE | 2022-06-20 09:26 | PC.NURSE ---
called the [facility], they state that they will get it done, they are short staffed
--- NOTE | 2022-06-20 09:42 | PC.NURSE ---
Pt speaking via phone with Diego Eller at this time.
--- NOTE | 2022-06-20 09:45 | PC.NURSE ---
present in the room while pt and family speaking with Kary from the [facility].
--- NOTE | 2022-06-20 10:11 | PC.NURSE ---
pt's son came to nurses station states pt took her home medications lexapro 20mg, ativan 2mg, metoprolol 25mg, and omeprazole 20mg po
--- NOTE | 2022-06-20 10:13 | PC.NURSE ---
pt wanting to know about home meds if can be taken
--- NOTE | 2022-06-20 10:14 | PC.NURSE ---
readjusted bp cuff
--- NOTE | 2022-06-20 10:19 | PC.NURSE ---
readjusted pt in bed, given pillow and family a blanket. No needs at this time
--- NOTE | 2022-06-20 10:39 | PC.NURSE ---
[facility] is recommending that pt is transferred somewhere for inpatient evaluation, recommended [facility]
--- NOTE | 2022-06-20 11:10 | PC.NURSE ---
Daysi RN at bedside speaking with pt and son at this time
--- NOTE | 2022-06-20 11:25 | PC.NURSE ---
Talked with family and pt about the [facility] recommendation. Pt states that she wants to go tomorrow due to needs to get things around the house done. Son states that his mom will not go because she does this to him all the time about doctors appts. She will state that she will go and then the morning of she gets up and says she is sick. PT tells her son to be quite and that she will go tomorrow. PT asked if I could call [facility] and see if she can come tomorrow instead of today.
--- NOTE | 2022-06-20 11:37 | PC.NURSE ---
Talked to Ted at the inpatient behavioral tom at [facility] and reported the pt current situation and status. Ted states that they have no bed availability for a few days and if the pt was wanting to go home today she wouldn't be considered at direct admit from the hospital but they would have to call the unit line which at that time would be evaluated by their food processing chemist with a at home phone call and then if needed to come in per his recommendation they would take her at that time by a verbal assessment. Per Ted the pt is to stay for a minimum of 2 weeks and that it would be a locked down facility for 2 weeks with no visitors. Information relayed to pt and son and at this time pt wants to go home and fu with the outpt verbal assessment. Pt states she will [place] tomorrow. Son states whatever his mom wants at this time. MD aware of current information as well.
== END 2022-06-20 11:57 | disposition home or self-care (01) ==
PROVIDERS: Emergency Medicine; Emergency Provider Emergency Medicine; PCP Family Medicine
DX: F23 Brief psychotic disorder (principal); Z79.899 Other long term (current) drug therapy
CPT/HCPCS: 80053; 80305; 80329; 81001; 85025; 87086; 87088; 87186; 99282; C9803; U0003; U0005

== ENCOUNTER 2022-06-23 19:36 | Emergency (ER) | payer MEDICARE, BC, SELFPAY ==
[2022-06-23 19:37] VITALS: BP 140/86; PULSE 97; RESP 18; TEMP 36.6; O2SAT 97; BMI 24.7
--- NOTE | 2022-06-23 19:37 | ECG_ITS ---
APPROVED REPORT Exam: Resting ECG HR:94 bpm ECG Measurements Heart Rate 94 AXES [place] 140 P 12 QRSd 86 QRS 25 QT 376 T 26 QTc 428 Conclusion SINUS RHYTHM MINIMAL ST DEPRESSION [0.025+ mV ST DEPRESSION] BORDERLINE ECG UNCONFIRMED REPORT Electronically signed by : Desmond Everett MD 06/25/2022 17:05:49
--- NOTE | 2022-06-23 19:41 | XR_ITS ---
PROCEDURE INFORMATION: Exam: XR Chest Exam date and time: 06/23/2022 7:46 PM Age: 71 years old Clinical indication: Other: Heart racing TECHNIQUE: Imaging protocol: Radiologic exam of the chest. Views: 2 views. COMPARISON: CR [id number] XR chest portable 12/28/2018 7:28 PM FINDINGS: Lungs: No consolidation. Pleural spaces: No pneumothorax. Heart/Mediastinum: Large hiatal hernia. Bones/joints: Degenerative changes of the shoulders. IMPRESSION: Large hiatal hernia.
[2022-06-23 19:52] LABS: Microscopic, Urine URINE MICROSCOPIC (MICROSCOPIC)
[2022-06-23 19:53] LABS: Basophils # 0.1 K/mm3 (0-0.2); Basophils % 1.6 % (0.1-2.0); Eosinophils # 0.1 K/mm3 (0.0-0.4); Eosinophils % 1.4 % (0.1-12.0); Hematocrit 41.5 % (37.0-47.0); Hemoglobin 13.1 g/dL (12.2-16.2); Lymphocytes # 1.7 K/mm3 (0.7-4.5); Lymphocytes % 33.5 % (10-50); Mean Corpuscular HGB Conc 31.5 g/dL (31.8-35.4); Mean Corpuscular Hemoglobin 28.9 pg (27.0-31.2); Mean Corpuscular Volume 91.9 fl (81-99); Mean Platelet Volume 9.1 fl (7.4-10.4); Monocytes # 0.3 K/mm3 (0.1-1.0); Neutrophils # 2.8 K/mm3 (1.8-7.8); Neutrophils % 56.5 % (37.0-80.0); Platelet Count 244 K/mm3 (142-424); Red Blood Count 4.52 M/mm3 (4.20-5.40); Red Cell Distribution Width 14.1 % (11.5-17.5); White Blood Count 4.9 K/mm3 (4.8-10.8)
[2022-06-23 19:54] LABS: Appearance,Urine CLEAR (Clear); Blood, Urine TRACE-I (Negative); Color,Urine YELLOW (Yellow); Glucose,Urine (UA) Negative (Negative); Ketones,Urine 1+ (Negative); Leukocyte Esterase,Urine 1+ (Negative); Nitrate,Urine Negative (Negative); Protein,Urine TRACE (Negative); Specific Gravity, Urine >= 1.030 (1.005-1.030); Urobilinogen,Urine 0.2 EU/dl (0.2)
[2022-06-23 19:55] LABS: Bilirubin,Urine 2+ (Negative)
[2022-06-23 20:02] LABS: Anion Gap 10.3 mEq/L (5-15); Blood Urea Nitrogen 10 mg/dl (7-17); Carbon Dioxide 26 mmol/L (22.0-30.0); Chloride 106 mmol/L (98-107); Creatinine Clearance Estimated 55 mL/min (50-200); Estimated Glomerular Filt Rate 71 ml/min (>60); GFR (African American) 86 ML/MIN (>60); Glucose 118 mg/dl (74-100); Potassium 3.3 mmoL/L (3.5-5.1); Sodium 139 mmol/L (136-145)
--- NOTE | 2022-06-23 20:06 | HMH.EDGENADL ---
ED Disposition Clinical Impression: Palpitations, Hiatal hernia Disposition: Home, Self-Care Condition on Discharge: Good Instructions: DI for Hiatal Hernia, DI for Palpitations Additional Instructions: You have been evaluated for abnormal heartbeat, palpitations. Please follow-up with your primary care doctor. Your x-ray today shows that you have a hiatal hernia. You will also need follow-up for this. Return to the emergency department at once for any new or worsening symptoms, chest pain, difficulty swallowing, vomiting, shortness of breath or any other concerns. Referrals: Deyanira Jenkins MD [Primary Care Provider] - Time of Disposition: 22:26 - Critical Care Critical Care Time: No Attestation: On 06/23/22, the high probability of a clinically significant, sudden or life threatening deterioration of the following system(s) required my full and direct attention, intervention and personal management. The time I documented below is in addition to time spent performing reported procedures but includes the following listed in this critical care notation. Medical Decision Making - Medical Records Medical records reviewed: Yes: I reviewed the patient's medical records. - Juan Inquiry Pt receiving controlled substance: No Vital Signs: 06/23/22 19:37 06/23/22 20:10 06/23/22 20:24 Temperature 97.8 F Temperature Source Oral Pulse Rate 87 88 Pulse Rate [Right] 97 H Respiratory Rate 18 16 16 Blood Pressure 110/66 118/69 Blood Pressure [Right Arm] 140/86 Blood Pressure Mean 80 84 Blood Pressure Mean [Right Arm] 104 02 Sat by Pulse Oximetry 97 96 97 06/23/22 20:39 Temperature Temperature Source Pulse Rate 85 Pulse Rate [Right] Respiratory Rate Blood Pressure 116/65 Blood Pressure [Right Arm] Blood Pressure Mean 82 Blood Pressure Mean [Right Arm] 02 Sat by Pulse Oximetry 94 L - Lab Data Lab Results 06/23/22 19:40: WBC 4.9, RBC 4.52, Hgb 13.1, Hct 41.5, MCV 91.9, MCH 28.9, MCHC 31.5 L, RDW 14.1, Plt Count 244, MPV 9.1, Neut % (Auto) 56.5, Lymph % (Auto) 33.5, [place] % (Auto) 7.0, Eos % (Auto) 1.4, Baso % (Auto) 1.6, Neut # (Auto) 2.8, Lymph # (Auto) 1.7, [place] # (Auto) 0.3, Eos # (Auto) 0.1, Baso # (Auto) 0.1 06/23/22 19:40: Sodium 139, Potassium 3.3 L, Chloride 106, Carbon Dioxide 26, Anion Gap 10.3, BUN 10, Creatinine 0.80, Estimated Creat Clear 55, Estimated GFR 71, Est GFR ( Amer) 86, Glucose 118 H, Calcium 9.0, Troponin I < 0.01 06/23/22 19:50: Urine Color Yellow, Urine Appearance Clear, Urine pH 6.0, Ur Specific [place] >= 1.030, Urine Protein Trace, Urine Glucose (UA) Negative, Urine Ketones 1+, Urine Blood Trace-i, Urine Nitrate Negative, Urine Bilirubin 2+ A, Urine Urobilinogen 0.2, Ur Leukocyte Esterase 1+ A, Urine RBC Occasional, Urine WBC 5-10, Ur Squamous Epith Cells 5-10, Urine Bacteria 1+ 06/23/22 21:45: Troponin I < 0.01 Result diagrams: 06/23/22 19:40 06/23/22 19:40 Orders (Tests/Meds): ED MEDICATIONS Discontinued Medications Generic Name Dose Route Start Last Admin Trade Name Freq PRN Reason Stop Dose Admin Aspirin 325 mg 06/23/22 20:06 06/23/22 20:09 Aspirin 325mg Tablet PO 06/23/22 20:07 325 mg ONCE ONE Administration ORDERS Category Date Time Status Troponin I Q3H Lab 06/24/22 01:45 Ordered Urine Culture Stat Micro 06/23/22 19:50 Received EKG Request [ECG Request by /Tahira] Stat Y 06/23/22 22:25 Ordered - ECG Data Tracing #1 Sinus rhythm with ventricular rate of 94 beats minute. QRS 86, QTc 428. T wave inversions in V1. No ST segment elevation. No arrhythmia. Medical Decision Narrative: In summary this is a 71-year-old female presenting to the emergency department with palpitations and chest tightness. Patient clinically stable on arrival. Vital signs within normal limits. Will obtain CBC, CMP, chest x-ray, EKG, troponin profile. Given 325 mg aspirin. EKG is quite reassuring. There are T wave inversions
[2022-06-23 20:10] VITALS: BP 110/66; PULSE 87; RESP 16; O2SAT 96
[2022-06-23 20:18] LABS: Troponin I < 0.01 ng/ml (0.00-0.034)
[2022-06-23 20:18] LABS: Bacteria,Urine 1+ /lpf; RBC,Urine Occasional #/hpf (0-3)
[2022-06-23 20:24] VITALS: BP 118/69; PULSE 88; RESP 16; O2SAT 97
[2022-06-23 20:39] VITALS: BP 116/65; PULSE 85; O2SAT 94
--- NOTE | 2022-06-23 21:46 | PC.NURSE ---
Lab notified that Dr. Gamboa would like a 2 hr troponin, blood sent at this time.
[2022-06-23 22:30] VITALS: BP 126/65; PULSE 82; RESP 18; TEMP 36.7; O2SAT 99
[2022-06-23 22:31] LABS: Troponin I < 0.01 ng/ml (0.00-0.034)
--- NOTE | 2022-06-23 22:35 | ECG_ITS ---
APPROVED REPORT Exam: Resting ECG HR:88 bpm ECG Measurements Heart Rate 88 AXES RI 148 P 11 QRSd 100 QRS 18 QT 392 T 8 QTc 437 Conclusion SINUS RHYTHM NONSPECIFIC T-WAVE ABNORMALITY BORDERLINE ECG UNCONFIRMED REPORT Electronically signed by : Desmond Everett MD 06/25/2022 17:05:41
== END 2022-06-23 22:45 | disposition home or self-care (01) ==
PROVIDERS: Emergency Provider Emergency Medicine; PCP Family Medicine
DX: R00.2 Palpitations; K44.9 Diaphragmatic hernia without obstruction or gangrene; Z79.899 Other long term (current) drug therapy
CPT/HCPCS: 71046; 80048; 81001; 84484; 85025; 87086; 93005; 99284; 99285

== ENCOUNTER 2022-06-25 16:32 | Emergency (ER) | payer MEDICARE, BC, SELFPAY ==
[2022-06-25 16:32] VITALS: BP 143/86; PULSE 85; RESP 18; TEMP 37.1; O2SAT 96; BMI 30.9
--- NOTE | 2022-06-25 16:41 | XR_ITS ---
PROCEDURE INFORMATION: Exam: XR Chest Exam date and time: 06/25/2022 4:59 PM Age: 71 years old Clinical indication: Pain; Chest pressure; Additional info: Heart flutter TECHNIQUE: Imaging protocol: Radiologic exam of the chest. Views: 1 view. COMPARISON: CR XR CHEST 2V 06/23/2022 7:46 PM FINDINGS: Lungs: Atelectasis of the left lung base. Pleural spaces: Unremarkable. No pleural effusion. No pneumothorax. Heart/Mediastinum: Massive hiatal hernia with the stomach inverted and largely intrathoracic. Vasculature: Calcification of thoracic aorta. Bones/joints: Degenerative changes of the shoulders and spine. IMPRESSION: 1. Massive hiatal hernia with the stomach inverted and largely intrathoracic. 2. Atelectasis of the left lung base. 3. Calcification of thoracic aorta. 4. Degenerative changes of the shoulders and spine.
--- NOTE | 2022-06-25 16:51 | ECG_ITS ---
APPROVED REPORT Exam: Resting ECG HR:82 bpm ECG Measurements Heart Rate 82 AXES OH 152 P 37 QRSd 86 QRS 26 QT 408 T 9 QTc 447 Conclusion SINUS RHYTHM LOW QRS VOLTAGE IN PRECORDIAL LEADS [QRS DEFLECTION < 1.0 mV IN CHEST LEADS] MODERATE T-WAVE ABNORMALITY, CONSIDER ANTERIOR ISCHEMIA [-0.1+ mV T-WAVE IN V3/V4] ABNORMAL ECG UNCONFIRMED REPORT Electronically signed by : Desmond Everett MD 06/27/2022 09:14:25
--- NOTE | 2022-06-25 16:53 | HMH.EDGENADL ---
ED Disposition Clinical Impression: UTI (urinary tract infection), Psychosis, Hiatal hernia Disposition: Home, Self-Care Condition on Discharge: Fair Additional Instructions: At this time with failure safely discharged home. If new or worsening symptoms please do not hesitate to return the emergency department. Please take antibiotics as prescribed. Please follow-up with [facility], they should contact you for an appointment. Please continue to follow-up with psychiatry on an outpatient basis. Prescriptions: Nitrofurantoin Monohyd/M-Cryst [Macrobid 100 mg Capsule] 100 mg PO BID #10 cap Transmission Status: Received by [employer] Referrals: Deyanira Jenkins MD [Primary Care Provider] - - Critical Care Critical Care Time: No Attestation: On 06/25/22, the high probability of a clinically significant, sudden or life threatening deterioration of the following system(s) required my full and direct attention, intervention and personal management. The time I documented below is in addition to time spent performing reported procedures but includes the following listed in this critical care notation. Medical Decision Making - Juan Inquiry Pt receiving controlled substance: No Vital Signs: 06/25/22 16:32 06/25/22 17:00 06/25/22 17:30 Temperature 98.8 F Temperature Source Oral Pulse Rate 89 66 Pulse Rate [Radial] 85 Respiratory Rate 18 17 21 Blood Pressure 143/95 H 133/76 Blood Pressure [Right Arm] 143/86 H Blood Pressure Mean 111 95 Blood Pressure Mean [Right Arm] 105 Blood Pressure Source [Right Arm] Automatic Cuff Blood Pressure Position [Right Arm] Sitting 02 Sat by Pulse Oximetry 96 95 95 Oxygen Delivery Method Room Air Room Air 06/25/22 18:00 06/25/22 18:30 Temperature Temperature Source Pulse Rate 85 85 Pulse Rate [Radial] Respiratory Rate 20 24 Blood Pressure 138/86 124/88 Blood Pressure [Right Arm] Blood Pressure Mean 104 102 Blood Pressure Mean [Right Arm] Blood Pressure Source [Right Arm] Blood Pressure Position [Right Arm] 02 Sat by Pulse Oximetry 96 95 Oxygen Delivery Method - Lab Data Lab Results 06/25/22 16:43: WBC 6.6 D, RBC 4.59, Hgb 13.1, Hct 42.3, MCV 92.3, MCH 28.5, MCHC 30.8 L, RDW 13.9, Plt Count 228, MPV 8.8, Neut % (Auto) 68.1, Lymph % (Auto) 24.6, [place] % (Auto) 5.9, Eos % (Auto) 0.6, Baso % (Auto) 0.9, Neut # (Auto) 4.5, Lymph # (Auto) 1.6, [place] # (Auto) 0.4, Eos # (Auto) 0.0, Baso # (Auto) 0.1 06/25/22 16:43: Sodium 141, Potassium 3.4 L, Chloride 106, Carbon Dioxide 30, Anion Gap 8.4, BUN 10, Creatinine 0.60 D, Estimated Creat Clear 68, Estimated GFR 99, Est GFR ( Amer) 120 D, Glucose 116 H, Calcium 9.2, Total Bilirubin 0.5, AST 34, ALT 27, Alkaline Phosphatase 58, Troponin I < 0.01, Total Protein 6.9, Albumin 4.1, Globulin 2.8, Albumin/Globulin Ratio 1.5 06/25/22 16:43: Magnesium 1.8 06/25/22 17:11: Urine Color Yellow, Urine Appearance Clear, Urine pH 6.0, Ur Specific [place] <= 1.005, Urine Protein Negative, Urine Glucose (UA) Negative, Urine Ketones Negative, Urine Blood Negative, Urine Nitrate Negative, Urine Bilirubin Negative, Urine Urobilinogen 0.2, Ur Leukocyte Esterase 1+ A, Urine RBC None, Urine WBC 10-20, Ur Squamous Epith Cells 3-5, Ur Transition Epith Cell 3-5, Urine Bacteria Trace 06/25/22 17:11: Urine Opiates Screen Negative, Urine Methadone Screen Negative, Ur Barbituates Screen Negative, Ur Phencyclidine Scrn Negative, Ur Amphetamines Screen Negative, U Benzodiazepines Scrn Negative, Urine Cocaine Screen Negative, U Marijuana (THC) Screen Negative Result diagrams: 06/25/22 16:43 06/25/22 16:43 Orders (Tests/Meds): ED MEDICATIONS Generic Name Dose Route Start Last Admin Trade Name Freq PRN Reason Stop Dose Admin Sodium Chloride 10 ml 06/25/22 16:40 Sodium Chloride 0.9% 10ml Flush Syringe IV 07/25/22 16:39 NEEDED PRN Maintain IV Site ORDERS Category Date Time Status Troponin I
--- NOTE | 2022-06-25 16:53 | PC.NURSE ---
XR AT BEDSIDE
[2022-06-25 17:00] VITALS: BP 143/95; PULSE 89; RESP 17; O2SAT 95
--- NOTE | 2022-06-25 17:02 | PC.NURSE ---
1700 ED MD AT BEDSIDE FOR EVALUATION
[2022-06-25 17:15] LABS: Chloride 106 mmol/L (98-107); Potassium 3.4 mmoL/L (3.5-5.1); Sodium 141 mmol/L (136-145)
[2022-06-25 17:17] LABS: Appearance,Urine CLEAR (Clear); Bilirubin,Urine Negative (Negative); Blood, Urine Negative (Negative); Color,Urine YELLOW (Yellow); Glucose,Urine (UA) Negative (Negative); Ketones,Urine Negative (Negative); Leukocyte Esterase,Urine 1+ (Negative); Microscopic, Urine URINE MICROSCOPIC (MICROSCOPIC); Nitrate,Urine Negative (Negative); Protein,Urine Negative (Negative); Specific Gravity, Urine <= 1.005 (1.005-1.030); Urobilinogen,Urine 0.2 EU/dl (0.2)
[2022-06-25 17:18] LABS: Alanine Aminotransferase 27 U/L (12-78); Albumin Level 4.1 g/dl (3.5-5.0); Albumin/Globulin Ratio 1.5 (1.1-1.8); Alkaline Phosphatase 58 U/L (38-126); Anion Gap 8.4 mEq/L (5-15); Aspartate Amino Transferase 34 U/L (14-36); Bilirubin,Total 0.5 mg/dl (0.2-1.3); Blood Urea Nitrogen 10 mg/dl (7-17); Calcium 9.2 mg/dl (8.4-10.2); Carbon Dioxide 30 mmol/L (22.0-30.0); Creatinine Clearance Estimated 68 mL/min (50-200); Estimated Glomerular Filt Rate 99 ml/min (>60); GFR (African American) 120 ML/MIN (>60); Globulin 2.8 g/dL (1.3-3.2); Glucose 116 mg/dl (74-100); Total Protein,Serum 6.9 g/dl (6.3-8.2)
[2022-06-25 17:21] LABS: Basophils # 0.1 K/mm3 (0-0.2); Basophils % 0.9 % (0.1-2.0); Eosinophils % 0.6 % (0.1-12.0); Hematocrit 42.3 % (37.0-47.0); Hemoglobin 13.1 g/dL (12.2-16.2); Lymphocytes # 1.6 K/mm3 (0.7-4.5); Lymphocytes % 24.6 % (10-50); Mean Corpuscular HGB Conc 30.8 g/dL (31.8-35.4); Mean Corpuscular Hemoglobin 28.5 pg (27.0-31.2); Mean Corpuscular Volume 92.3 fl (81-99); Mean Platelet Volume 8.8 fl (7.4-10.4); Monocytes # 0.4 K/mm3 (0.1-1.0); Monocytes % 5.9 % (1.7-9.3); Neutrophils # 4.5 K/mm3 (1.8-7.8); Neutrophils % 68.1 % (37.0-80.0); Platelet Count 228 K/mm3 (142-424); Red Blood Count 4.59 M/mm3 (4.20-5.40); Red Cell Distribution Width 13.9 % (11.5-17.5); White Blood Count 6.6 K/mm3 (4.8-10.8)
[2022-06-25 17:29] LABS: Benzodiazepines Screen,Urine Negative ng/ml (<200)
[2022-06-25 17:30] VITALS: BP 133/76; PULSE 66; RESP 21; O2SAT 95
[2022-06-25 17:30] LABS: Amphetamine/Metha Screen,Urine Negative ng/ml (<1000)
[2022-06-25 17:30] LABS: Magnesium 1.8 mg/dl (1.6-2.3); Troponin I < 0.01 ng/ml (0.00-0.034)
[2022-06-25 17:31] LABS: Barbiturates Screen,Urine Negative ng/ml (<200); Methadone Screen,Urine Negative ng/ml (<300)
[2022-06-25 17:32] LABS: Cannabinoid Screen,Urine Negative ng/ml (<50); Cocaine Screen,Urine Negative ng/ml (<300)
[2022-06-25 17:33] LABS: Opiate Screen,Urine Negative ng/ml (<300)
[2022-06-25 17:34] LABS: Bacteria,Urine Trace /lpf; Phencyclidine Screen,Urine Negative ng/ml (<25)
--- NOTE | 2022-06-25 17:43 | PC.NURSE ---
ROUNDED ON PT, SON AT BEDSIDE. PT WITHOUT NEEDS
[2022-06-25 18:00] VITALS: BP 138/86; PULSE 85; RESP 20; O2SAT 96
[2022-06-25 18:30] VITALS: BP 124/88; PULSE 85; RESP 24; O2SAT 95
--- NOTE | 2022-06-25 19:06 | PC.NURSE ---
ED MD AT BEDSIDE FOR REEVALUATION
--- NOTE | 2022-06-25 19:27 | PC.NURSE ---
speaking with Dr. Iraheta at
[2022-06-25 19:50] VITALS: BP 135/74; PULSE 81; RESP 20; TEMP 37.1; O2SAT 97
== END 2022-06-25 19:51 | disposition home or self-care (01) ==
PROVIDERS: Emergency Provider Emergency Medicine; PCP Family Medicine
DX: N39.0 Urinary tract infection, site not specified (principal); F29 Unspecified psychosis not due to a substance or known physiological condition; K44.9 Diaphragmatic hernia without obstruction or gangrene; Z79.899 Other long term (current) drug therapy
CPT/HCPCS: 71045; 80053; 80305; 81001; 83735; 84484; 85025; 87086; 93005; 99284

== ENCOUNTER 2022-06-27 17:13 | Emergency (ER) | payer MEDICARE, BC, SELFPAY ==
[2022-06-27 17:15] VITALS: BP 158/83; PULSE 90; RESP 16; TEMP 36.5; O2SAT 95; BMI 31.8
[2022-06-27 17:30] VITALS: BP 122/85; PULSE 86; O2SAT 95
--- NOTE | 2022-06-27 18:05 | HMH.EDGENADL ---
ED Disposition Clinical Impression: Acute anxiety, Benzodiazepine withdrawal without complication Disposition: Home, Self-Care Condition on Discharge: Good Additional Instructions: Be sure to refill your prescription tomorrow, 06/28. Call [place] inpatient psychiatry services as discussed. Follow-up with your primary care provider regarding refills as well. If you have any other concerning symptoms, return to the emergency department for further evaluation. Referrals: Deyanira Jenkins MD [Primary Care Provider] - - Critical Care Critical Care Time: No Attestation: On 06/27/22, the high probability of a clinically significant, sudden or life threatening deterioration of the following system(s) required my full and direct attention, intervention and personal management. The time I documented below is in addition to time spent performing reported procedures but includes the following listed in this critical care notation. Medical Decision Making - Juan Inquiry Pt receiving controlled substance: Yes (Ativan) Juan was queried for this patient: No Risks and benefits of using a controlled substance: were not discussed with pt by me (Patient chronically on Ativan 2 mg) Vital Signs: 06/27/22 17:15 06/27/22 17:30 06/27/22 18:51 Temperature 97.7 F 97.7 F Temperature Source Oral Oral Pulse Rate 86 84 Pulse Rate [Left Radial] 90 Respiratory Rate 16 17 Blood Pressure 122/85 121/85 Blood Pressure [Right Arm] 158/83 H Blood Pressure Mean 101 Blood Pressure Mean [Right Arm] 108 Blood Pressure Source [Right Arm] Automatic Cuff Blood Pressure Position [Right Arm] Sitting 02 Sat by Pulse Oximetry 95 95 Oxygen Delivery Method Room Air Orders (Tests/Meds): ED MEDICATIONS Discontinued Medications Generic Name Dose Route Start Last Admin Trade Name Marvel PRN Reason Stop Dose Admin Lorazepam 2 mg 06/27/22 18:07 06/27/22 18:13 Lorazepam 1mg Tablet PO 06/27/22 18:08 2 mg ONCE ONE Administration Medical Decision Narrative: This is a 71-year-old female with history of chronic psychiatric problems, anxiety on daily lorazepam presenting with concern for lorazepam withdrawal. On arrival, patient hemodynamically stable, alert, oriented, moving all extremities spontaneously, pupils equal and reactive to light, GCS 15. Differential includes withdrawal, intoxication, drug-seeking behavior, functional, depression, anxiety, hallucinations, psychosis, among others. Given patient's well clinical appearance, near baseline other than agitation, outpatient follow-up as well as strong family support, patient was given 1 dose of Ativan here in the emergency department as it is prescribed to her. Patient deemed appropriate for discharge shortly thereafter. She exhibited no signs of withdrawal, or clinical decompensation after administration of medication. Results were relayed to patient who voiced understanding and were agreeable to outpatient management and follow up. Patient was discharged in hemodynamically stable condition with recommended primary care follow-up. General Adult HPI - General Chief complaint: Anxiety Stated complaint: anxiety, out of meds Time Seen by Provider: 06/27/22 17:20 Mode of Arrival: Ambulatory Limitations: No Limitations Description of Symptoms (Recalled from ER Triage Doc. by RN): c/o being out of her anxiety medicine since 11am this morning. PT states she usually takes lorazapam 1mg-2 tabs tid. She has a refill but she wasnt able to make it to the pharmacy to get it. - History of Present Illness HPI narrative: This is a 71-year-old female with significant psych history, anxiety on chronic benzodiazepines presenting with medication refill concerns. Patient states that she generally takes 2 mg of Ativan 3 times daily and she is run out today. She is down 1 dose, was planning on calling [facility] or other inpatient psychiatric facility tomorrow, 06/28, but does not have medic
[2022-06-27 18:51] VITALS: BP 121/85; PULSE 84; RESP 17; TEMP 36.5; O2SAT 96
== END 2022-06-27 18:54 | disposition home or self-care (01) ==
PROVIDERS: Emergency Provider Emergency Medicine; PCP Family Medicine
DX: F41.8 Other specified anxiety disorders (principal); F15.23 Other stimulant dependence with withdrawal; Z79.899 Other long term (current) drug therapy
CPT/HCPCS: 99212; 99282; G0463

== ENCOUNTER 2022-06-28 06:45 | Emergency (ER) | payer MEDICARE, BC, SELFPAY ==
[2022-06-28 06:46] VITALS: BP 174/99; PULSE 97; RESP 18; TEMP 36.9; O2SAT 99; BMI 30.9
[2022-06-28 06:50] VITALS: BP 174/99; PULSE 85; O2SAT 97
--- NOTE | 2022-06-28 06:51 | ECG_ITS ---
APPROVED REPORT Exam: Resting ECG HR:92 bpm ECG Measurements Heart Rate 92 AXES MI 149 P 35 QRSd 88 QRS 30 QT 382 T 34 QTc 431 Conclusion SINUS RHYTHM NORMAL ECG UNCONFIRMED REPORT Electronically signed by : Desmond Everett MD 06/29/2022 21:28:35
[2022-06-28 07:00] VITALS: BP 163/92; PULSE 88; O2SAT 96
--- NOTE | 2022-06-28 07:00 | XR_ITS ---
FINAL REPORT CLINICAL HISTORY: soa COMPARISON: 06/25/2022 FINDINGS: A single view of the chest was obtained. The heart is mildly enlarged. There is a moderate hiatal hernia. There is mild bibasilar atelectasis. There is no pleural effusion. There is no pneumothorax. There is no acute osseous abnormality. IMPRESSION: Mild cardiomegaly and mild bibasilar atelectasis. Reviewed, Interpreted and Dictated by Kenneth Carrion MD Transcribed by Jolene Francisco Authenticated and [facility]
--- NOTE | 2022-06-28 07:21 | PC.NURSE ---
ELIAZAR FLORES at for patient eval
[2022-06-28 07:22] LABS: Basophils # 0.1 K/mm3 (0-0.2); Basophils % 2.5 % (0.1-2.0); Eosinophils # 0.1 K/mm3 (0.0-0.4); Eosinophils % 1.1 % (0.1-12.0); Hematocrit 44.5 % (37.0-47.0); Hemoglobin 13.7 g/dL (12.2-16.2); Lymphocytes # 1.6 K/mm3 (0.7-4.5); Lymphocytes % 28.8 % (10-50); Mean Corpuscular HGB Conc 30.8 g/dL (31.8-35.4); Mean Corpuscular Hemoglobin 28.6 pg (27.0-31.2); Mean Corpuscular Volume 92.8 fl (81-99); Monocytes # 0.4 K/mm3 (0.1-1.0); Monocytes % 6.6 % (1.7-9.3); Neutrophils # 3.5 K/mm3 (1.8-7.8); Platelet Count 270 K/mm3 (142-424); Red Cell Distribution Width 13.8 % (11.5-17.5); White Blood Count 5.7 K/mm3 (4.8-10.8)
--- NOTE | 2022-06-28 07:22 | PC.NURSE ---
Notified crystal in radiology of xray order
[2022-06-28 07:23] LABS: Alanine Aminotransferase 29 U/L (12-78); Albumin/Globulin Ratio 1.3 (1.1-1.8); Alkaline Phosphatase 68 U/L (38-126); Anion Gap 10.1 mEq/L (5-15); Aspartate Amino Transferase 27 U/L (14-36); Bilirubin,Total 0.9 mg/dl (0.2-1.3); Blood Urea Nitrogen 9 mg/dl (7-17); Calcium 9.1 mg/dl (8.4-10.2); Carbon Dioxide 29 mmol/L (22.0-30.0); Chloride 105 mmol/L (98-107); Creatinine Clearance Estimated 68 mL/min (50-200); Estimated Glomerular Filt Rate 99 ml/min (>60); GFR (African American) 120 ML/MIN (>60); Glucose 109 mg/dl (74-100); Potassium 3.1 mmoL/L (3.5-5.1); Sodium 141 mmol/L (136-145)
--- NOTE | 2022-06-28 07:25 | PC.NURSE ---
Radiology at BS for portable chest xray
[2022-06-28 07:28] LABS: C-Reactive Protein 8.1 mg/L (0-4)
--- NOTE | 2022-06-28 07:28 | HMH.EDANX ---
ED Disposition Clinical Impression: Schizo-affective schizophrenia, chronic condition Disposition: Home, Self-Care Condition on Discharge: Good Instructions: Anxiety Disorders Referrals: Deyanira Jenkins MD [Primary Care Provider] - - Critical Care Critical Care Time: No Attestation: On 06/28/22, the high probability of a clinically significant, sudden or life threatening deterioration of the following system(s) required my full and direct attention, intervention and personal management. The time I documented below is in addition to time spent performing reported procedures but includes the following listed in this critical care notation. Medical Decision Making - Medical Records Medical records reviewed: Yes: I reviewed the patient's medical records. - Juan Inquiry Pt receiving controlled substance: Yes Juan was queried for this patient: Yes Risks and benefits of using a controlled substance: were discussed with pt by me Vital Signs: 06/28/22 06:46 06/28/22 06:50 06/28/22 07:00 Temperature 98.4 F Temperature Source Oral Pulse Rate 85 88 Pulse Rate [Right] 97 H Respiratory Rate 18 Blood Pressure 174/99 H 163/92 H Blood Pressure [Right Arm] 174/99 H Blood Pressure Mean 140 118 Blood Pressure Mean [Right Arm] 124 Blood Pressure Source Blood Pressure Position 02 Sat by Pulse Oximetry 99 97 96 Oxygen Delivery Method Room Air Room Air 06/28/22 07:30 06/28/22 08:00 06/28/22 08:38 Temperature 98.4 F Temperature Source Oral Pulse Rate 85 82 89 Pulse Rate [Right] Respiratory Rate 18 Blood Pressure 163/87 H 151/90 H 151/90 H Blood Pressure [Right Arm] Blood Pressure Mean 112 111 Blood Pressure Mean [Right Arm] Blood Pressure Source Automatic Cuff Blood Pressure Position Sitting 02 Sat by Pulse Oximetry 95 95 Oxygen Delivery Method Room Air - Lab Data Lab results reviewed: Yes: I reviewed the patient's lab results. Lab Results 06/28/22 06:53: WBC 5.7, RBC 4.80, Hgb 13.7, Hct 44.5, MCV 92.8, MCH 28.6, MCHC 30.8 L, RDW 13.8, Plt Count 270, MPV 9.0, Neut % (Auto) 61.0, Lymph % (Auto) 28.8, [place] % (Auto) 6.6, Eos % (Auto) 1.1, Baso % (Auto) 2.5 H, Neut # (Auto) 3.5, Lymph # (Auto) 1.6, [place] # (Auto) 0.4, Eos # (Auto) 0.1, Baso # (Auto) 0.1, ESR 15 06/28/22 06:53: Sodium 141, Potassium 3.1 L, Chloride 105, Carbon Dioxide 29, Anion Gap 10.1, BUN 9, Creatinine 0.60, Estimated Creat Clear 68, Estimated GFR 99, Est GFR ( Amer) 120, Glucose 109 H, Calcium 9.1, Total Bilirubin 0.9, AST 27, ALT 29, Alkaline Phosphatase 68, C-Reactive Protein 8.1 H, Total Protein 7.0, Albumin 4.0, Globulin 3.0, Albumin/Globulin Ratio 1.3, Procalcitonin 0.045 Result diagrams: 06/28/22 06:53 06/28/22 06:53 Orders (Tests/Meds): ED MEDICATIONS Discontinued Medications Generic Name Dose Route Start Last Admin Trade Name Freq PRN Reason Stop Dose Admin Lorazepam 1 mg 06/28/22 07:38 06/28/22 07:42 Lorazepam 1mg Tablet PO 06/28/22 07:39 1 mg ONCE ONE Administration Potassium Chloride 40 meq 06/28/22 07:36 06/28/22 07:42 Potassium Chloride 20meq Tab PO 06/28/22 07:37 40 meq ONCE ONE Administration Anxiety HPI - General Chief Complaint: Anxiety Stated Complaint: SOA Time Seen by Provider: 06/28/22 08:00 Mode of Arrival: Ambulatory Limitations: No Limitations Description of Symptoms (Recalled from ER Triage Doc. by RN): pt states she has been anxious and SOA since she woke up. also pt states she hasnt been able to sleep. pt has have several er visits the past couple of days and it set up to be evulated [place]. - History of Present Illness HPI narrative: Pt. complains of feelings anxious. Describes symptoms as moderate in severity and without exacerbating or alleivating factors. She has a h/o schizophrenia and was here yesterday with similar sxs., stating she's out of her lorazepam. Lives with her son. complaint: anxiety Onset (a
[2022-06-28 07:30] VITALS: BP 163/87; PULSE 85; O2SAT 95
[2022-06-28 07:42] LABS: Procalcitonin 0.045 ng/mL (0.0-2.0)
[2022-06-28 07:53] LABS: Erythrocyte Sedimentation Rate 15 mm/hr (0-30)
[2022-06-28 08:00] VITALS: BP 151/90; PULSE 82; O2SAT 95
[2022-06-28 08:38] VITALS: BP 151/90; PULSE 89; RESP 18; TEMP 36.9; O2SAT 95
== END 2022-06-28 08:41 | disposition home or self-care (01) ==
PROVIDERS: Emergency Medicine; Emergency Provider Emergency Medicine; PCP Family Medicine
DX: F20.9 Schizophrenia, unspecified (principal); R06.02 Shortness of breath; R09.82 Postnasal drip; F41.9 Anxiety disorder, unspecified
CPT/HCPCS: 71045; 80053; 84145; 85025; 85651; 86140; 93005; 99284

== ENCOUNTER 2022-07-01 15:57 | Emergency (ER) | payer MEDICARE, BC, SELFPAY ==
--- NOTE | 2022-07-01 17:00 | PC.NURSE ---
per registration, pt stated that she was going home to rest.
[2022-07-01 17:03] VITALS: BP 0/0; PULSE 0; RESP 0; TEMP -17.7; TEMP 0
--- NOTE | 2022-08-22 08:10 | HMH.EDGENADL ---
Discharge Plan Disposition Patient Disposition: Left Without Being Seen Discharge ED Provider: Monica Hayes General Adult HPI General Stated complaint: Dental issues Blood in mouth Time Seen by Provider: 07/01/22 17:00 History of Present Illness HPI narrative: Patient eloped prior to assessment by myself, thus I was unable to complete an assessment. Related Data Home Medications Medication Instructions Recorded Confirmed escitalopram oxalate 20 mg tablet 20 mg PO BID Depression 11/12/18 06/23/22 (Lexapro) lorazepam 2 mg tablet 2 mg PO TID Anxiety 11/12/18 06/23/22 metoprolol tartrate 25 mg tablet 25 mg PO DAILY Hypertension 11/12/18 06/23/22 simvastatin 20 mg tablet (Zocor) 20 mg PO DAILY Cholesterol 11/12/18 06/23/22 omeprazole 20 mg capsule,delayed 20 mg PO DAILY GERD 04/09/22 06/23/22 release levofloxacin 500 mg tablet 500 mg PO DAILY uti 06/1606/23/22 06/23/22 Previous Rx's Medication Instructions Recorded ondansetron 4 mg disintegrating 4 mg PO BID PRN Nausea #6 tabs 05/28/22 tablet nitrofurantoin 100 mg PO BID #10 caps 06/25/22 monohydrate/macrocrystals 100 mg capsule risperidone 0.25 mg tablet 0.25 mg PO BID DEPRESSION AND 06/25/22 ANXIETY #30 tabs Allergies Allergy/AdvReac Type Severity Reaction Status Date / Time No Known Allergies Allergy Verified 12/28/18 17:22 [facility] Surgical History History of cholecystectomy Social History Smoking Status: Never smoker alcohol intake: never substance use type: denies use current occupational status: other Travel in the last 8 weeks: None household members: other ROS Obtained: Yes other Unable to obtain, as patient eloped prior to assessment. Physical Exam General General appearance: other Comment: Unable to assess, as patient eloped prior to assessment. Respiratory Respiratory exam: Present other (Unable to assess given patient eloped) Cardiovascular Cardiovascular exam: Present other Neurological Exam Neurological exam: Present other (Unable to assess, as patient eloped prior to assessment.) Medical Decision Making Juan Inquiry Pt receiving controlled substance: No Vital Signs: 07/01/22 17:03 Temperature 0 F L Pulse Rate 0 L Respiratory Rate 0 L Blood Pressure 0/0 L Medical Decision Narrative: Patient eloped prior to assessment by myself, thus I was unable to complete an assessment Critical Care Time Critical Care Time Critical Care Time: No Attestation: On 07/01/22, the high probability of a clinically significant, sudden or life threatening deterioration of the following system(s) required my full and direct attention, intervention and personal management. The time I documented below is in addition to time spent performing reported procedures but includes the following listed in this critical care notation.
== END 2022-07-01 17:04 | disposition left against medical advice (07) ==
LOC: ER 16:53
PROVIDERS: Emergency Provider Emergency Medicine; PCP Family Medicine
DX: Z53.21 Procedure and treatment not carried out due to patient leaving prior to being seen by health care provider (principal)

== ENCOUNTER 2022-07-06 13:19 | Emergency (ER) | payer MEDICARE, BC, SELFPAY ==
[2022-07-06 13:20] VITALS: BP 119/77; PULSE 79; RESP 16; TEMP 36.5; O2SAT 96; BMI 31.8
--- NOTE | 2022-07-06 13:22 | PC.NURSE ---
patient ambulatory from waiting room to ED room 5 with family. No complications
[2022-07-06 13:30] VITALS: BP 125/76; PULSE 82; O2SAT 98
[2022-07-06 14:00] VITALS: BP 133/87; PULSE 75; O2SAT 96
--- NOTE | 2022-07-06 14:14 | PC.NURSE ---
ELIAZAR FLORES at for patient eval
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
--- NOTE | 2022-07-06 14:43 | PC.NURSE ---
SPOKE WITH CHETAN RICHTER AT [facility] FOR ADMISSION. FAX ALL LABS AND NOTES FOR ADMISSION. PT WILL BE ACCEPTED. CALL BEFORE DISCHARGE.
--- NOTE | 2022-07-06 14:55 | PC.NURSE ---
Daryl Leigh Dispatch regarding involuntary hold paperwork needing to be picked up by [employer] and taken to the critical power install technician for approval.
[2022-07-06 15:00] LABS: Coronavirus 19, PCR Not Detected (NotDetected); Influenza A, PCR Not Detected (NotDetected); Influenza B, PCR Not Detected (NotDetected)
--- NOTE | 2022-07-06 15:46 | PC.NURSE ---
Daysi Correa, RN at speaking with patient
[2022-07-06 15:59] VITALS: BP 133/87; PULSE 75; RESP 16; TEMP 36.5; O2SAT 96
--- NOTE | 2022-07-06 15:59 | PC.NURSE ---
[employer] at [facility] speaking with patient regarding patients transfer
== END 2022-07-06 16:00 ==
PROVIDERS: Emergency Provider Emergency Medicine; PCP Family Medicine
DX: F29 Unspecified psychosis not due to a substance or known physiological condition (principal); Z79.899 Other long term (current) drug therapy
CPT/HCPCS: 99283; C9803; U0003; U0005

== ENCOUNTER 2022-07-06 22:40 | Emergency (ER) | payer MEDICARE, BC, SELFPAY ==
[2022-07-06 22:40] VITALS: BP 165/89; PULSE 82; RESP 18; TEMP 36.8; O2SAT 98; BMI 29.8
[2022-07-06 23:00] VITALS: BP 146/86; PULSE 78; RESP 16; O2SAT 95
--- NOTE | 2022-07-06 23:49 | PC.NURSE ---
Patient is currently resting in bed. Does not complain of any physical symptoms. Will continue to monitor patient.
--- NOTE | 2022-07-07 00:09 | PC.NURSE ---
Called patients son to update him on patients condition. Per patients son, the patient was sent home from [facility] today, where he was under the impression that she would be held for 72 hours for psychiatric treatment. Per son, mother came home after just a couple of hours and has continued to speak to friends and family who are and to exhibit signs of delerium. Son states that whenever the patient is released from the hospital he will come and pick her up.
[2022-07-07 00:33] VITALS: BP 146/82; PULSE 79; RESP 16; TEMP 36.7; O2SAT 95
--- NOTE | 2022-07-07 00:37 | PC.NURSE ---
PT ALERT AND PLEASANT. SON NOTIFIED OF PLAN TO DISCHARGE PER MERLE BENTON. PT DENIES PAIN. NO ACUTE DISTRESS NOTED.
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
== END 2022-07-07 00:57 | disposition home or self-care (01) ==
PROVIDERS: Emergency Provider Emergency Medicine; PCP Family Medicine
DX: F20.9 Schizophrenia, unspecified (principal); Z79.899 Other long term (current) drug therapy; F32.A Depression, unspecified; F41.9 Anxiety disorder, unspecified; I10 Essential (primary) hypertension; K21.9 Gastro-esophageal reflux disease without esophagitis
CPT/HCPCS: 99282

== ENCOUNTER 2022-07-13 03:51 | Emergency (ER) | payer MEDICARE, BC, SELFPAY ==
[2022-07-13 03:51] VITALS: BP 151/90; PULSE 86; RESP 16; TEMP 36.5; O2SAT 95; BMI 34.3
--- NOTE | 2022-07-13 03:53 | ECG_ITS ---
APPROVED REPORT Exam: Resting ECG HR:87 bpm ECG Measurements Heart Rate 87 AXES MS 138 P 36 QRSd 98 QRS 31 QT 396 T 6 QTc 441 Conclusion SINUS RHYTHM LOW QRS VOLTAGE IN PRECORDIAL LEADS [QRS DEFLECTION < 1.0 mV IN CHEST LEADS] MINIMAL ST DEPRESSION [0.025+ mV ST DEPRESSION] BORDERLINE ECG UNCONFIRMED REPORT Electronically signed by : Desmond Everett MD 07/13/2022 13:47:58
--- NOTE | 2022-07-13 04:04 | XR_ITS ---
PROCEDURE INFORMATION: Exam: XR Chest Exam date and time: 07/13/2022 4:10 AM Age: 71 years old Clinical indication: Chest wall pain; Additional info: Chest pain TECHNIQUE: Imaging protocol: Radiologic exam of the chest. Views: 2 views. COMPARISON: CR XR CHEST PORTABLE 06/28/2022 7:34 AM FINDINGS: Lungs: Biapical scar. No consolidation. Pleural spaces: Unremarkable. No pleural effusion. No pneumothorax. Heart/Mediastinum: Large hiatal hernia again noted. Normal cardiac size. Vasculature: The aorta demonstrates mild atherosclerotic calcification. Bones/joints: Degenerative changes of the acromioclavicular joints. Degenerative changes of the spine. Organs: There has been a cholecystectomy. IMPRESSION: 1. No acute findings. 2. Large hiatal hernia again noted.
--- NOTE | 2022-07-13 04:07 | PC.NURSE ---
Pt's son says that pt told him she needed to go to the hospital. On the way to the hospital he says the pt became erratic and trying jerking the wheel and attempted to pull keys from the ignition. When pt arrived to the lobby door he told registration that pt had taken off in the parking lot . Son called dispatch at this time. Son reports she has hx of psychosis and has been evaluated multiple times here and by [facility] recently.This Rn and Demetri Herrera RN walked outside accompanied by C[employer] to find pt leaning against the building. When asking pt why she told her son to bring her to the hospital she states that her teeth are rotting and she is slowly dying. When asked if she would like to be evaluated by staff for her teeth she stated there is nothing you can do for me. Pt stated that her son wants to lock her up at that [facility] again. We again asked the pt why she changed her mind on coming to the hospital and if anything else was bothering her. Pt then stated she had been having chest pain and is unable to sleep. Pt was then agreeable to have an evaluation for her chest pain by staff. Upon arrived to room 5 is when pt reported she thinks she has a UTI as well. Labs and UA as well as EKG obtained at this time.
--- NOTE | 2022-07-13 04:15 | PC.NURSE ---
PATIENT ALERT, AND ORIENTED, SKIN WARM AND DRY TO TOUCH. PATIENT HAS MULTIPLE COMPLAINTS REPORTS HAVING CHEST PAIN X 3 DAYS AND HEART ACTING UP , REPORTS HAVING A UTI. PATIENT AGREEABLE TO VITALS, IV AND EKG. ADMITS TO HEARING VOICES AT TIMES, DENIES ANY HARM TO SELF OR OTHERS.
[2022-07-13 04:18] LABS: Basophils # 0.1 K/mm3 (0-0.2); Basophils % 1.1 % (0.1-2.0); Eosinophils # 0.1 K/mm3 (0.0-0.4); Hematocrit 42.9 % (37.0-47.0); Hemoglobin 13.4 g/dL (12.2-16.2); Lymphocytes # 1.7 K/mm3 (0.7-4.5); Lymphocytes % 34.5 % (10-50); Mean Corpuscular HGB Conc 31.3 g/dL (31.8-35.4); Mean Corpuscular Volume 89.5 fl (81-99); Monocytes # 0.4 K/mm3 (0.1-1.0); Monocytes % 8.3 % (1.7-9.3); Neutrophils # 2.7 K/mm3 (1.8-7.8); Neutrophils % 54.1 % (37.0-80.0); Platelet Count 218 K/mm3 (142-424); Red Blood Count 4.79 M/mm3 (4.20-5.40); Red Cell Distribution Width 13.8 % (11.5-17.5); White Blood Count 4.9 K/mm3 (4.8-10.8)
[2022-07-13 04:26] LABS: Alanine Aminotransferase 22 U/L (12-78); Albumin Level 3.8 g/dl (3.5-5.0); Alkaline Phosphatase 71 U/L (38-126); Aspartate Amino Transferase 22 U/L (14-36); Bilirubin,Direct 0.3 mg/dl (0.0-0.4); Bilirubin,Indirect 0.9 mg/dL (0.0-0.9); Bilirubin,Total 1.2 mg/dl (0.2-1.3); Bilirubin,Unconjugated 0.9 mg/dL (0.0-1.1); Blood Urea Nitrogen 5 mg/dl (7-17); Calcium 9.2 mg/dl (8.4-10.2); Carbon Dioxide 25 mmol/L (22.0-30.0); Chloride 107 mmol/L (98-107); Creatinine Clearance Estimated 76 mL/min (50-200); Estimated Glomerular Filt Rate 122 ml/min (>60); GFR (African American) 148 ML/MIN (>60); Glucose 118 mg/dl (74-100); Sodium 140 mmol/L (136-145); Total Protein,Serum 6.8 g/dl (6.3-8.2)
[2022-07-13 04:28] LABS: Lactic Acid 1.3 mmol/L (0.7-2.1)
[2022-07-13 04:30] VITALS: BP 142/83; PULSE 80; RESP 12; O2SAT 96
[2022-07-13 04:32] LABS: Acetaminophen < 10 ug/ml (10-30); Amphetamine/Metha Screen,Urine Negative ng/ml (<1000); Salicylate < 1.0 mg/dL (2.0-20.0)
[2022-07-13 04:33] LABS: Barbiturates Screen,Urine Negative ng/ml (<200); Benzodiazepines Screen,Urine Negative ng/ml (<200)
[2022-07-13 04:34] LABS: Cannabinoid Screen,Urine Negative ng/ml (<50)
[2022-07-13 04:35] LABS: Cocaine Screen,Urine Negative ng/ml (<300); Methadone Screen,Urine Negative ng/ml (<300)
[2022-07-13 04:36] LABS: Opiate Screen,Urine Negative ng/ml (<300)
--- NOTE | 2022-07-13 04:36 | PC.NURSE ---
notified gene of critical potassium 3.0
[2022-07-13 04:37] LABS: Phencyclidine Screen,Urine Negative ng/ml (<25)
[2022-07-13 04:40] LABS: Troponin I < 0.01 ng/ml (0.00-0.034)
[2022-07-13 04:44] LABS: Procalcitonin 0.043 ng/mL (0.0-2.0)
[2022-07-13 05:00] VITALS: BP 137/80; PULSE 72; O2SAT 97
[2022-07-13 05:04] LABS: Erythrocyte Sedimentation Rate 22 mm/hr (0-30)
--- NOTE | 2022-07-13 05:36 | HMH.EDCP ---
Discharge Plan Disposition Patient Disposition: Home, Self-Care Prescriptions Prescriptions: No Action risperidone 0.25 mg tablet 0.25 mg PO BID Qty: 30 0RF ondansetron 4 MG tablet,disintegrating 4 mg PO BID PRN (Reason: Nausea) Qty: 6 0RF lorazepam 2 MG Tablet 2 mg PO TID simvastatin [Zocor] 20 MG Tablet 20 mg PO DAILY escitalopram oxalate [Lexapro] 20 MG Tablet 20 mg PO BID metoprolol tartrate 25 MG Tablet 25 mg PO DAILY omeprazole 20 MG capsule,delayed release(DR/EC) 20 mg PO DAILY levofloxacin 500 MG tablet 500 mg PO DAILY nitrofurantoin monohyd/m-cryst 100 MG capsule 100 mg PO BID Qty: 10 0RF Referrals Follow up/Referrals: Deyanira Jenkins MD [Primary Care Provider] - See instructions Clinical Impressions Clinical Impression: Chest pain Instructions Patient Instructions: DI for Atypical Chest Pain Discharge ED Provider: Lg Adkins Chest Pain HPI General Chief Complaint: Chest Pain Stated Complaint: Chest Pain Time Seen by Provider: 07/13/22 05:36 Mode of Arrival: Ambulatory Source of Information: Patient and Medical Record Limitations: No Limitations Description of Symptoms (Recalled from ER Triage Doc. by RN): Pt c/o rotting teeth and chest pain today. She also states she thinks she has a UTI. Pt's son brought her to ER because he states she has hx of psychosis and he thinks she needs to be evaluated. Pt has been seen at the ED as well as [facility] multiple time. Pt denies thoughts of self harm or intent to harm herself for others. History of Present Illness HPI narrative: pt is poor historian but reported concern about chest pain - pt denies - also pt denied any thoughts of self harm - denied hearing voices or seeing things complaint: chest pain indicative of cardiac Onset (ago): hour(s) Duration: now resolved Severity: moderate Quality: other (pt denied ) Risk Factors for CAD: Hypertension and Family Hx of CAD Treatments prior to or on arrival for Cardiac Chest Pain: none NOMAN Score for Non-Stemi Age of Patient: 60-69 years old Heart Rate: 50-69 bpm Systolic Blood Pressure: 140-159 mmHg Serum Creatinine: 0.40-0.79 mg/dl CHF Killip Class: I-No CHF Other Risk Factors: None Non-Stemi Risk Score: 89 Related Data On Oral Contraceptives: No Home Medications Medication Instructions Recorded Confirmed escitalopram oxalate 20 mg tablet 20 mg PO BID Depression 11/12/18 06/23/22 (Lexapro) lorazepam 2 mg tablet 2 mg PO TID Anxiety 11/12/18 06/23/22 metoprolol tartrate 25 mg tablet 25 mg PO DAILY Hypertension 11/12/18 06/23/22 simvastatin 20 mg tablet (Zocor) 20 mg PO DAILY Cholesterol 11/12/18 06/23/22 omeprazole 20 mg capsule,delayed 20 mg PO DAILY GERD 04/09/22 06/23/22 release levofloxacin 500 mg tablet 500 mg PO DAILY uti 06/1606/23/22 06/23/22 Previous Rx's Medication Instructions Recorded ondansetron 4 mg disintegrating 4 mg PO BID PRN Nausea #6 tabs 05/28/22 tablet nitrofurantoin 100 mg PO BID #10 caps 06/25/22 monohydrate/macrocrystals 100 mg capsule risperidone 0.25 mg tablet 0.25 mg PO BID DEPRESSION AND 06/25/22 ANXIETY #30 tabs Allergies Allergy/AdvReac Type Severity Reaction Status Date / Time No Known Allergies Allergy Verified 12/28/18 17:22 [facility] PFS Surgical History (Updated 07/13/22 @ 04:43 by Kaleb Castro RN) History of cholecystectomy Social History (Updated 07/07/22 @ 01:34 by Lg Adkins MD) Smoking Status: Never smoker alcohol intake: never substance use type: denies use current occupational status: other Travel in the last 8 weeks: None household members: other ROS Obtained: Yes All systems reviewed & no additional complaints except as documented Physical Exam General General appearance: alert Head Head exam: normocephalic Eye Eye exam: Present PERRL and EOMI ENT ENT exam: Present mucous membranes moist Neck Neck exam: Present trache
--- NOTE | 2022-07-13 05:39 | PC.NURSE ---
Pt updated on POC. Pt has remained cooperative and pleasant since arriving in the ER. No new complaints reported to staff. Pt denies current chest pains.
[2022-07-13 05:44] VITALS: BP 151/78; PULSE 69; PULSE 87; RESP 14; TEMP 36.6; O2SAT 97
== END 2022-07-13 06:13 | disposition home or self-care (01) ==
PROVIDERS: Emergency Provider Emergency Medicine; PCP Family Medicine
DX: R07.9 Chest pain, unspecified (principal); R11.0 Nausea; I10 Essential (primary) hypertension; K21.9 Gastro-esophageal reflux disease without esophagitis; K02.9 Dental caries, unspecified; F32.A Depression, unspecified; Z79.899 Other long term (current) drug therapy; Z82.49 Family history of ischemic heart disease and other diseases of the circulatory system
CPT/HCPCS: 71046; 80048; 80076; 80305; 80329; 83605; 84145; 84484; 85025; 85651; 86140; 87040; 93005; 96360; 99285

== ENCOUNTER 2022-07-16 15:03 | Emergency (ER) | payer MEDICARE, BC, SELFPAY ==
--- NOTE | 2022-07-16 15:01 | ECG_ITS ---
APPROVED REPORT Exam: Resting ECG HR:101 bpm ECG Measurements Heart Rate 101 AXES TX 135 P 5 QRSd 97 QRS 4 QT 403 T -5 QTc 461 Conclusion SINUS TACHYCARDIA MODERATE VOLTAGE CRITERIA FOR LVH, CONSIDER NORMAL VARIANT [MEETS CRITERIA IN ONE OF: R(aVL), S(V1), R(V5), R(V5/V6)+S(V1)] ST DEVIATION AND MODERATE T-WAVE ABNORMALITY, CONSIDER ANTEROLATERAL ISCHEMIA [-0.1+ mV T-WAVE IN V3-V6] ABNORMAL ECG UNCONFIRMED REPORT Electronically signed by : Desmond Everett MD 07/18/2022 15:27:11
[2022-07-16 15:04] VITALS: BP 127/71; PULSE 103; RESP 16; TEMP 36.6; O2SAT 98; BMI 27.4
[2022-07-16 15:35] LABS: Basophils % 0.5 % (0.1-2.0); Eosinophils # 0.1 K/mm3 (0.0-0.4); Hematocrit 42.5 % (37.0-47.0); Hemoglobin 12.7 g/dL (12.2-16.2); Lymphocytes # 1.3 K/mm3 (0.7-4.5); Lymphocytes % 23.1 % (10-50); Mean Corpuscular HGB Conc 29.8 g/dL (31.8-35.4); Mean Corpuscular Hemoglobin 27.5 pg (27.0-31.2); Mean Corpuscular Volume 92.2 fl (81-99); Mean Platelet Volume 8.1 fl (7.4-10.4); Monocytes # 0.3 K/mm3 (0.1-1.0); Monocytes % 5.4 % (1.7-9.3); Neutrophils # 3.9 K/mm3 (1.8-7.8); Platelet Count 208 K/mm3 (142-424); Red Blood Count 4.61 M/mm3 (4.20-5.40); Red Cell Distribution Width 13.4 % (11.5-17.5); White Blood Count 5.5 K/mm3 (4.8-10.8)
[2022-07-16 15:39] LABS: Chloride 108 mmol/L (98-107); Potassium 3.2 mmoL/L (3.5-5.1); Sodium 140 mmol/L (136-145)
[2022-07-16 15:42] LABS: Alanine Aminotransferase 19 U/L (12-78); Albumin Level 3.8 g/dl (3.5-5.0); Albumin/Globulin Ratio 1.4 (1.1-1.8); Alkaline Phosphatase 68 U/L (38-126); Anion Gap 9.2 mEq/L (5-15); Aspartate Amino Transferase 26 U/L (14-36); Blood Urea Nitrogen 7 mg/dl (7-17); Calcium 8.1 mg/dl (8.4-10.2); Carbon Dioxide 26 mmol/L (22.0-30.0); Creatinine Clearance Estimated 61 mL/min (50-200); Estimated Glomerular Filt Rate 83 ml/min (>60); GFR (African American) 100 ML/MIN (>60); Globulin 2.7 g/dL (1.3-3.2); Glucose 138 mg/dl (74-100); Total Protein,Serum 6.5 g/dl (6.3-8.2)
[2022-07-16 15:43] LABS: Magnesium 1.7 mg/dl (1.6-2.3)
[2022-07-16 15:46] VITALS: BP 92/69; PULSE 97; RESP 16; O2SAT 96
--- NOTE | 2022-07-16 15:46 | PC.NURSE ---
pt sitting up in bed, offered pt a blanket pt declined. Call light hooked onto bed rail within reach of pt. Pt oriented to call light. will continue to monitor
[2022-07-16 15:55] LABS: Troponin I < 0.01 ng/ml (0.00-0.034)
[2022-07-16 16:00] VITALS: BP 96/61; PULSE 96; RESP 16; O2SAT 96
[2022-07-16 16:30] VITALS: BP 99/61; PULSE 90; RESP 16; O2SAT 96
--- NOTE | 2022-07-16 17:28 | PC.NURSE ---
notified pt son Joe that pt is ready for d/c. pt sitting up in a chair at this time per her request.
[2022-07-16 17:47] VITALS: BP 99/61; PULSE 90; RESP 16; TEMP 36.7; O2SAT 96
--- NOTE | 2022-07-16 20:49 | HMH.EDGENADL ---
Discharge Plan Disposition Patient Disposition: Home, Self-Care Condition: Good Prescriptions Prescriptions: No Action risperidone 0.25 mg tablet 0.25 mg PO BID Qty: 30 0RF ondansetron 4 MG tablet,disintegrating 4 mg PO BID PRN (Reason: Nausea) Qty: 6 0RF lorazepam 2 MG Tablet 2 mg PO TID simvastatin [Zocor] 20 MG Tablet 20 mg PO DAILY escitalopram oxalate [Lexapro] 20 MG Tablet 20 mg PO BID metoprolol tartrate 25 MG Tablet 25 mg PO DAILY omeprazole 20 MG capsule,delayed release(DR/EC) 20 mg PO DAILY levofloxacin 500 MG tablet 500 mg PO DAILY nitrofurantoin monohyd/m-cryst 100 MG capsule 100 mg PO BID Qty: 10 0RF Referrals Follow up/Referrals: Deyanira Jenkins MD [Primary Care Provider] - See instructions Activity Restrictions/Add. Instructions Additional Instructions/Restrictions: Your labs were normal. Follow up with your PCP. Clinical Impressions Clinical Impression: Palpitations Instructions Patient Instructions: DI for Palpitations Discharge ED Provider: Lili Paniagua General Adult HPI General Chief complaint: Chest Pain Stated complaint: CHEST PAIN Time Seen by Provider: 07/16/22 15:06 Mode of Arrival: EMS Source of Information: Patient Limitations: No Limitations Description of Symptoms (Recalled from ER Triage Doc. by RN): to ed per squad with c/o lt side chest pain, nausea, vomiting, sob, palpatations starting this am. pt denies any fever, chills. History of Present Illness HPI narrative: The patient is a 71-year-old female with a psychiatric history on Risperdal who presents to the ED with concern for palpitations. The patient states that she feels like her heart is starting and stopping. She also says she has not been taking her Risperdal for the last few days. Denies nausea vomiting or diarrhea. She is worried that the moles on her skin are touching her heart . Denies any suicidal or homicidal ideations, no hallucinations. No shortness of breath, fever, headache or any other symptoms. Related Data Home Medications Medication Instructions Recorded Confirmed escitalopram oxalate 20 mg tablet 20 mg PO BID Depression 11/12/18 06/23/22 (Lexapro) lorazepam 2 mg tablet 2 mg PO TID Anxiety 11/12/18 06/23/22 metoprolol tartrate 25 mg tablet 25 mg PO DAILY Hypertension 11/12/18 06/23/22 simvastatin 20 mg tablet (Zocor) 20 mg PO DAILY Cholesterol 11/12/18 06/23/22 omeprazole 20 mg capsule,delayed 20 mg PO DAILY GERD 04/09/22 06/23/22 release levofloxacin 500 mg tablet 500 mg PO DAILY uti 06/1606/23/22 06/23/22 Previous Rx's Medication Instructions Recorded ondansetron 4 mg disintegrating 4 mg PO BID PRN Nausea #6 tabs 05/28/22 tablet nitrofurantoin 100 mg PO BID #10 caps 06/25/22 monohydrate/macrocrystals 100 mg capsule risperidone 0.25 mg tablet 0.25 mg PO BID DEPRESSION AND 06/25/22 ANXIETY #30 tabs Allergies Allergy/AdvReac Type Severity Reaction Status Date / Time No Known Allergies Allergy Verified 12/28/18 17:22 [facility] Surgical History History of cholecystectomy Social History Smoking Status: Never smoker alcohol intake: never substance use type: denies use current occupational status: other Travel in the last 8 weeks: None household members: other ROS Obtained: Yes Systems reviewed as appropriate & no additional complaints except as documented Physical Exam General General appearance: alert and in no apparent distress Head Head exam: atraumatic Eye Eye exam: Present normal appearance and EOMI ENT ENT exam: Present normal exam and normal oropharynx Neck Neck exam: Present full ROM Chest Chest inspection: Present normal inspection and symmetric chest wall rise Respiratory Respiratory exam: Present normal lung sounds bilaterally; Absent respiratory distress Cardi
== END 2022-07-16 17:52 | disposition home or self-care (01) ==
PROVIDERS: Emergency Provider Emergency Medicine; PCP Family Medicine
DX: R07.9 Chest pain, unspecified (principal); R00.2 Palpitations; R06.02 Shortness of breath; R11.2 Nausea with vomiting, unspecified; Z79.899 Other long term (current) drug therapy
CPT/HCPCS: 80053; 83735; 84484; 85025; 93005; 99284

== ENCOUNTER 2022-10-28 12:54 | Emergency (ER) | payer MEDICARE, BC, SELFPAY ==
[2022-10-28 13:55] VITALS: BP 167/86; PULSE 88; RESP 20; TEMP 36.8; O2SAT 96; BMI 27.4
[2022-10-28 14:01] VITALS: BP 150/84; PULSE 93; O2SAT 96
--- NOTE | 2022-10-28 14:02 | HMH.EDGENADL ---
Discharge Plan Disposition Patient Disposition: Home, Self-Care Condition: Good Prescriptions Prescriptions: New sertraline 25 mg tablet 25 mg PO DAILY Qty: 20 0RF clonazepam 0.5 mg tablet 0.5 mg PO BID Qty: 40 0RF No Action risperidone 0.25 mg tablet 0.25 mg PO BID Qty: 30 0RF ondansetron 4 MG tablet,disintegrating 4 mg PO BID PRN (Reason: Nausea) Qty: 6 0RF lorazepam 2 MG tablet 2 mg PO TID simvastatin [Zocor] 20 MG tablet 20 mg PO DAILY escitalopram oxalate [Lexapro] 20 MG tablet 20 mg PO BID metoprolol tartrate 25 MG tablet 25 mg PO DAILY omeprazole 20 MG capsule,delayed release(DR/EC) 20 mg PO DAILY levofloxacin 500 MG tablet 500 mg PO DAILY nitrofurantoin monohyd/m-cryst 100 MG capsule 100 mg PO BID Qty: 10 0RF Referrals Follow up/Referrals: Deyanira Jenkins MD [Primary Care Provider] - See instructions Activity Restrictions/Add. Instructions Additional Instructions/Restrictions: Maintain follow-up as discussed and scheduled. If you have any other concerning signs or symptoms, return to your primary care provider or psychiatrist for further evaluation Clinical Impressions Clinical Impression: Encounter for medication refill Discharge ED Provider: Pdady Castano General Adult HPI General Chief complaint: Recheck/Abnormal Lab/Rx Stated complaint: anxiety attack Time Seen by Provider: 10/28/22 13:50 Mode of Arrival: Ambulatory Source of Information: Patient Limitations: No Limitations Description of Symptoms (Recalled from ER Triage Doc. by RN): pt to ed reporting she is in need of medication refills. History of Present Illness HPI narrative: This is a 72-year-old female with history of anxiety, schizoaffective disorder, schizophrenia presenting for refill of medication. Per son, who is now court appointed medical decision-maker, patient was admitted to [facility] for approximately 2 months, discharged on 09/28 with current medications. Patient was only discharged with enough medications to make it to her next psychiatry appointment, which was supposed to be 2 days prior to arrival on 10/26. Because of poor appointment in order to establish guardianship, patient was unable to make it to her psychiatry appointment for refill of medications. Patient presents today with healthcare power of scholarship counselor for medication refills. Patient states that he tried calling psychiatrist, other primary care providers, has been unable to reach anyone. Last dose of medication was on the evening of 10/27 and patient has not had medications today. Medications include sertraline 25 mg daily and clonazepam 0.5 mg twice daily. Patient denies any symptoms at this time other than anxiety secondary to missing medication doses and concern out of complications. Related Data Home Medications Medication Instructions Recorded Confirmed escitalopram oxalate 20 mg tablet 20 mg PO BID Depression 11/12/18 06/23/22 (Lexapro) lorazepam 2 mg tablet 2 mg PO TID Anxiety 11/12/18 06/23/22 metoprolol tartrate 25 mg tablet 25 mg PO DAILY Hypertension 11/12/18 06/23/22 simvastatin 20 mg tablet (Zocor) 20 mg PO DAILY Cholesterol 11/12/18 06/23/22 omeprazole 20 mg capsule,delayed 20 mg PO DAILY GERD 04/09/22 06/23/22 release levofloxacin 500 mg tablet 500 mg PO DAILY uti 06/1606/23/22 06/23/22 Previous Rx's Medication Instructions Recorded ondansetron 4 mg disintegrating 4 mg PO BID PRN Nausea #6 tabs 05/28/22 tablet nitrofurantoin 100 mg PO BID #10 caps 06/25/22 monohydrate/macrocrystals 100 mg capsule risperidone 0.25 mg tablet 0.25 mg PO BID DEPRESSION AND 06/25/22 ANXIETY #30 tabs clonazepam 0.5 mg tablet 0.5 mg PO BID #40 tabs 10/28/22 sertraline 25 mg tablet 25 mg PO DAILY #20 tabs 10/28/22 Allergies Allergy/AdvReac Type Severity Reaction Status Date / Time No Known Allergies Allergy
[2022-10-28 14:37] VITALS: BP 134/87; PULSE 82; RESP 20; TEMP 36.8; O2SAT 99
== END 2022-10-28 14:39 | disposition home or self-care (01) ==
PROVIDERS: Emergency Provider Emergency Medicine; PCP Family Medicine
DX: R79.9 Abnormal finding of blood chemistry, unspecified (principal); R00.0 Tachycardia, unspecified; R11.0 Nausea; I10 Essential (primary) hypertension; F20.9 Schizophrenia, unspecified; F41.9 Anxiety disorder, unspecified; Z79.899 Other long term (current) drug therapy; Z76.0 Encounter for issue of repeat prescription
CPT/HCPCS: 99282

== ENCOUNTER 2023-01-04 16:53 | Emergency (ER) | payer MEDICARE, BC, SELFPAY ==
[2023-01-04 17:02] VITALS: BMI 24.8
[2023-01-04 17:09] VITALS: BP 155/102; PULSE 112; RESP 14; TEMP 36.9; O2SAT 98; BMI 24.7
--- NOTE | 2023-01-04 17:09 | XR_ITS ---
PROCEDURE INFORMATION: Exam: XR Chest Exam date and time: 01/04/2023 5:55 PM Age: 72 years old Clinical indication: Shortness of breath; Additional info: SOA TECHNIQUE: Imaging protocol: Radiologic exam of the chest. Views: 1 view. COMPARISON: CR XR CHEST 2V 07/13/2022 4:10 AM FINDINGS: Lungs: Mild left basilar atelectasis. Lungs and costophrenic angles otherwise clear. Pleural spaces: Unremarkable. No pleural effusion. No pneumothorax. Heart/Mediastinum: Heart size and vascularity appear normal. Bones/joints: Unremarkable. IMPRESSION: Mild left basilar atelectasis. Otherwise stable chest x-ray with hiatal hernia but no other acute findings.
--- NOTE | 2023-01-04 17:11 | HMH.EDGENADL ---
Discharge Plan Disposition Patient Disposition: Home, Self-Care Condition: Good Prescriptions Prescriptions: New cephalexin 500 mg capsule 500 mg PO TID 5 Days Qty: 15 0RF No Action risperidone 0.25 mg tablet 0.25 mg PO BID Qty: 30 0RF ondansetron 4 MG tablet,disintegrating 4 mg PO BID PRN (Reason: Nausea) Qty: 6 0RF sertraline 25 mg tablet 25 mg PO DAILY Qty: 20 0RF clonazepam 0.5 mg tablet 0.5 mg PO BID Qty: 40 0RF lorazepam 2 MG tablet 2 mg PO TID simvastatin [Zocor] 20 MG tablet 20 mg PO DAILY escitalopram oxalate [Lexapro] 20 MG tablet 20 mg PO BID metoprolol tartrate 25 MG tablet 25 mg PO DAILY omeprazole 20 MG capsule,delayed release(DR/EC) 20 mg PO DAILY levofloxacin 500 MG tablet 500 mg PO DAILY nitrofurantoin monohyd/m-cryst 100 MG capsule 100 mg PO BID Qty: 10 0RF Referrals Follow up/Referrals: Deyanira Jenkins MD [Primary Care Provider] - See instructions Activity Restrictions/Add. Instructions Additional Instructions/Restrictions: Follow-up tomorrow with the patient psychiatrist he will be contacting you. Return for worsening agitation or other concerns. Clinical Impressions Clinical Impression: Urinary tract infection, Hallucinations Instructions Patient Instructions: DI for Acute Abdominal Pain Discharge ED Provider: Paddy Reddy General Adult HPI General Chief complaint: Abdominal Pain Stated complaint: Possible UTI, Congestion, Time Seen by Provider: 01/04/23 17:01 History of Present Illness HPI narrative: Patient presents with a 3 to 4-day history of intermittent auditory and visual hallucinations. Patient denies being homicidal or suicidal she has had similar symptoms in the past. Symptoms are described as moderate and without exacerbating or alleviating factors. Related Data Home Medications Medication Instructions Recorded Confirmed escitalopram oxalate 20 mg tablet 20 mg PO BID Depression 11/12/18 06/23/22 (Lexapro) lorazepam 2 mg tablet 2 mg PO TID Anxiety 11/12/18 06/23/22 metoprolol tartrate 25 mg tablet 25 mg PO DAILY Hypertension 11/12/18 06/23/22 simvastatin 20 mg tablet (Zocor) 20 mg PO DAILY Cholesterol 11/12/18 06/23/22 omeprazole 20 mg capsule,delayed 20 mg PO DAILY GERD 04/09/22 06/23/22 release levofloxacin 500 mg tablet 500 mg PO DAILY uti 06/1606/23/22 06/23/22 Previous Rx's Medication Instructions Recorded ondansetron 4 mg disintegrating 4 mg PO BID PRN Nausea #6 tabs 05/28/22 tablet nitrofurantoin 100 mg PO BID #10 caps 06/25/22 monohydrate/macrocrystals 100 mg capsule risperidone 0.25 mg tablet 0.25 mg PO BID DEPRESSION AND 06/25/22 ANXIETY #30 tabs clonazepam 0.5 mg tablet 0.5 mg PO BID #40 tabs 10/28/22 sertraline 25 mg tablet 25 mg PO DAILY #20 tabs 10/28/22 cephalexin 500 mg capsule 500 mg PO TID 5 days #15 caps 01/04/23 Allergies Allergy/AdvReac Type Severity Reaction Status Date / Time No Known Allergies Allergy Verified 12/28/18 17:22 [facility] Disclaimer: The information contained in this section may have been updated after the patient was seen, as this information can be updated by other users. Surgical History History of cholecystectomy Social History Smoking Status: Never smoker alcohol intake: never substance use type: denies use current occupational status: other Travel in the last 8 weeks: None household members: other ROS Obtained: Yes All systems reviewed & no additional complaints except as documented Physical Exam General General appearance: alert and in no apparent distress Head Head exam: atraumatic, normocephalic and normal inspection Eye Eye exam: Present normal appearance, PERRL and EOMI ENT ENT exam: Present normal exam, normal oropharynx, mucous membranes moist, TM's normal bilaterally and normal project safety manager
[2023-01-04 17:14] LABS: Microscopic, Urine URINE MICROSCOPIC (MICROSCOPIC)
[2023-01-04 17:22] LABS: Appearance,Urine CLEAR (Clear); Bilirubin,Urine Negative (Negative); Blood, Urine TRACE-I (Negative); Color,Urine YELLOW (Yellow); Glucose,Urine (UA) Negative (Negative); Ketones,Urine 3+ (Negative); Leukocyte Esterase,Urine Negative (Negative); Nitrate,Urine Negative (Negative); Protein,Urine Negative (Negative)
--- NOTE | 2023-01-04 17:22 | ECG_ITS ---
APPROVED REPORT Exam: Resting ECG HR:114 bpm ECG Measurements Heart Rate 114 AXES ND 132 P 48 QRSd 78 QRS 12 QT 350 T 39 QTc 418 Conclusion SINUS TACHYCARDIA LEFT ATRIAL ENLARGEMENT [-0.15mV P-WAVE IN V1/V2] ST DEVIATION AND MODERATE T-WAVE ABNORMALITY, CONSIDER ANTERIOR ISCHEMIA [-0.1+ mV T-WAVE IN V3/V4] ABNORMAL ECG UNCONFIRMED REPORT Electronically signed by : Desmond Everett MD 01/05/2023 20:21:55
[2023-01-04 17:28] LABS: Basophils # 0.1 K/mm3 (0-0.2); Eosinophils # 0.1 K/mm3 (0.0-0.4); Eosinophils % 1.3 % (0.1-12.0); Hematocrit 48.7 % (37.0-47.0); Hemoglobin 15.8 g/dL (12.2-16.2); Lymphocytes # 1.5 K/mm3 (0.7-4.5); Lymphocytes % 17.7 % (10-50); Mean Corpuscular HGB Conc 32.5 g/dL (31.8-35.4); Mean Corpuscular Volume 89.4 fl (81-99); Mean Platelet Volume 9.3 fl (7.4-10.4); Monocytes # 0.4 K/mm3 (0.1-1.0); Monocytes % 4.4 % (1.7-9.3); Neutrophils # 6.3 K/mm3 (1.8-7.8); Neutrophils % 75.6 % (37.0-80.0); Platelet Count 288 K/mm3 (142-424); Red Blood Count 5.45 M/mm3 (4.20-5.40); Red Cell Distribution Width 14.6 % (11.5-17.5); White Blood Count 8.3 K/mm3 (4.8-10.8)
[2023-01-04 17:37] LABS: Bacteria,Urine Trace /lpf; RBC,Urine Occasional #/hpf (0-3)
[2023-01-04 17:40] LABS: Chloride 107 mmol/L (98-107); Potassium 3.8 mmoL/L (3.5-5.1); Sodium 142 mmol/L (136-145)
[2023-01-04 17:43] LABS: Alanine Aminotransferase 24 U/L (12-78); Albumin Level 4.9 g/dl (3.5-5.0); Albumin/Globulin Ratio 1.4 (1.1-1.8); Alkaline Phosphatase 81 U/L (38-126); Anion Gap 13.8 mEq/L (5-15); Aspartate Amino Transferase 31 U/L (14-36); Bilirubin,Total 1.8 mg/dl (0.2-1.3); Blood Urea Nitrogen 10 mg/dl (7-17); Carbon Dioxide 25 mmol/L (22.0-30.0); Creatinine Clearance Estimated 52 mL/min (50-200); Estimated Glomerular Filt Rate 122 ml/min (>60); GFR (African American) 148 ML/MIN (>60); Globulin 3.6 g/dL (1.3-3.2); Total Protein,Serum 8.5 g/dl (6.3-8.2)
[2023-01-04 17:44] LABS: Calcium 9.3 mg/dl (8.4-10.2); Glucose 119 mg/dl (74-100)
[2023-01-04 17:57] LABS: Troponin I < 0.01 ng/ml (0.00-0.034)
[2023-01-04 19:00] VITALS: BP 162/103; PULSE 124; O2SAT 100
--- NOTE | 2023-01-04 19:04 | CT_ITS ---
PROCEDURE INFORMATION: Exam: CTA Chest With Contrast Exam date and time: 01/04/2023 7:23 PM Age: 72 years old Clinical indication: Shortness of breath; Additional info: SOA TECHNIQUE: Imaging protocol: Computed tomographic angiography of the chest with contrast. 3D rendering (Not supervised by radiologist): MIP and/or 3D reconstructed images were created by the technologist. Radiation optimization: All CT scans at this facility use at least one of these dose optimization techniques: automated exposure control; mA and/or kV adjustment per patient size (includes targeted exams where dose is matched to clinical indication); or iterative reconstruction. Contrast material: ISOVUE 370; Contrast volume: 70 ml; Contrast route: INTRAVENOUS (IV); REPORTING DATA: Count of CT and Cardiac NM exams in prior 12 months: This patient has received [address] and 0 known cardiac nuclear medicine studies in the 12 months prior to the current study. COMPARISON: CR XR CHEST PORTABLE 01/04/2023 5:55 PM FINDINGS: Pulmonary arteries: No evident PE. Sensitivity may be limited due to motion artifact in the lung bases. Aorta: Unremarkable. No aortic aneurysm. No aortic dissection. Lungs: Mild bibasilar atelectasis. Biapical pleural-parenchymal scarring. Lung webb otherwise clear. Pleural spaces: See Lungs finding. Heart: Unremarkable. No cardiomegaly. No pericardial effusion. Coronary arteries: Coronary artery calcifications are noted. Lymph nodes: Unremarkable. No enlarged lymph nodes. Diaphragm: Large hiatal hernia incidentally noted. Upper abdomen viscera otherwise unremarkable. Bones/joints: Unremarkable. No acute fracture. Soft tissues: See Diaphragm finding. IMPRESSION: 1. No evident PE with above limitation. No other acute findings. 2. Large hiatal hernia. 3. Additional nonemergent findings as above.
[2023-01-04 19:30] VITALS: BP 190/103; PULSE 102; O2SAT 98
[2023-01-04 20:00] VITALS: BP 172/100; PULSE 90; O2SAT 97
--- NOTE | 2023-01-04 20:23 | PC.NURSE ---
MD speaking with Dr. Hubbard who is cone trucker for pt's psych doc Rounded on pt and son, provided son with drink and updated on POC
--- NOTE | 2023-01-04 20:26 | PC.NURSE ---
Cultures and and lactic drawn and sent to lab
[2023-01-04 21:17] VITALS: BP 164/85; PULSE 87; RESP 16; TEMP 36.7; O2SAT 97
== END 2023-01-04 21:30 | disposition home or self-care (01) ==
PROVIDERS: Emergency Provider Emergency Medicine; PCP Family Medicine
DX: R44.0 Auditory hallucinations (principal); R44.1 Visual hallucinations; N39.0 Urinary tract infection, site not specified; Z90.49 Acquired absence of other specified parts of digestive tract
CPT/HCPCS: 71045; 71275; 80053; 81001; 83605; 84484; 85025; 87040; 87077; 87186; 93005; 93041; 96360; 96372; 99285; Q9967

== ENCOUNTER 2023-01-06 10:33 | Emergency (ER) | payer MEDICARE, BC, SELFPAY ==
[2023-01-06] VITALS (11 sets, daily range): BP systolic 121–180; BP diastolic 79–95; PULSE 80–102; RESP 17–20; TEMP 36.7–36.8; O2SAT 96–99; BMI 22.8
--- NOTE | 2023-01-06 10:41 | PC.NURSE ---
ELIAZAR FLORES at
--- NOTE | 2023-01-06 10:55 | HMH.EDGENADL ---
Discharge Plan Disposition Patient Disposition: Xfer Psychiatric Hosp Condition: Fair Prescriptions Prescriptions: No Action risperidone 0.25 mg tablet 0.25 mg PO BID Qty: 30 0RF ondansetron 4 MG tablet,disintegrating 4 mg PO BID PRN (Reason: Nausea) Qty: 6 0RF sertraline 25 mg tablet 25 mg PO DAILY Qty: 20 0RF clonazepam 0.5 mg tablet 0.5 mg PO BID Qty: 40 0RF lorazepam 2 MG tablet 2 mg PO TID simvastatin [Zocor] 20 MG tablet 20 mg PO DAILY escitalopram oxalate [Lexapro] 20 MG tablet 20 mg PO BID metoprolol tartrate 25 MG tablet 25 mg PO DAILY omeprazole 20 MG capsule,delayed release(DR/EC) 20 mg PO DAILY levofloxacin 500 MG tablet 500 mg PO DAILY nitrofurantoin monohyd/m-cryst 100 MG capsule 100 mg PO BID Qty: 10 0RF cephalexin 500 mg capsule 500 mg PO TID 5 Days Qty: 15 0RF Referrals Follow up/Referrals: Deyanira Jenkins MD [Primary Care Provider] - See instructions Clinical Impressions Clinical Impression: Acute psychosis, Auditory hallucinations Discharge ED Provider: Jannie Gamboa General Adult HPI General Chief complaint: Psychiatric Symptoms Stated complaint: UIT diagnosed Time Seen by Provider: 01/06/23 10:38 Mode of Arrival: Ambulatory Source of Information: Patient History of Present Illness HPI narrative: 72-year-old female presenting to the emergency department with auditory hallucinations, altered mental status. She arrives with her son, they live together and he is her caregiver. Over the last few days she has had waxing and waning mental status, seems to be hallucinating. Talking about her . Saying that someone wants to emely their house. Concerned they are going to kill her. Symptoms started 4 days ago. She was diagnosed with a urinary tract infection at our hospital and started on Macrobid. Her psychiatrist started low-dose risperidone. She had a very good day yesterday. No change to mental status. Eating and drinking normally. Patient says she did not sleep last night. Feels paranoid. She denies headache, chest pain, abdominal pain. Denies dysuria, fevers, chills, nausea, vomiting. most recent mental health hospitalization was July of last year, [facility]. Diagnosed with mild cognitive impairment. Related Data Home Medications Medication Instructions Recorded Confirmed escitalopram oxalate 20 mg tablet 20 mg PO BID Depression 11/12/18 06/23/22 (Lexapro) lorazepam 2 mg tablet 2 mg PO TID Anxiety 11/12/18 06/23/22 metoprolol tartrate 25 mg tablet 25 mg PO DAILY Hypertension 11/12/18 06/23/22 simvastatin 20 mg tablet (Zocor) 20 mg PO DAILY Cholesterol 11/12/18 06/23/22 omeprazole 20 mg capsule,delayed 20 mg PO DAILY GERD 04/09/22 06/23/22 release levofloxacin 500 mg tablet 500 mg PO DAILY uti 06/1606/23/22 06/23/22 Previous Rx's Medication Instructions Recorded ondansetron 4 mg disintegrating 4 mg PO BID PRN Nausea #6 tabs 05/28/22 tablet nitrofurantoin 100 mg PO BID #10 caps 06/25/22 monohydrate/macrocrystals 100 mg capsule risperidone 0.25 mg tablet 0.25 mg PO BID DEPRESSION AND 06/25/22 ANXIETY #30 tabs clonazepam 0.5 mg tablet 0.5 mg PO BID #40 tabs 10/28/22 sertraline 25 mg tablet 25 mg PO DAILY #20 tabs 10/28/22 cephalexin 500 mg capsule 500 mg PO TID 5 days #15 caps 01/04/23 Allergies Allergy/AdvReac Type Severity Reaction Status Date / Time No Known Allergies Allergy Verified 12/28/18 17:22 [facility] Disclaimer: The information contained in this section may have been updated after the patient was seen, as this information can be updated by other users. Surgical History History of cholecystectomy Social History Smoking Status: Never smoker alcohol intake: never substance use type: denies use current occupational status: other Tra
--- NOTE | 2023-01-06 12:08 | PC.NURSE ---
pt becoming agitated, arguing with son in the room. ER MD aware and to BS pt wanting to leave and walk home , explained to pt is it not safe for her to leave at this time r/t pt having hallucinations. Pt agreeable to get back in bed. curtain open to pts room for safety
--- NOTE | 2023-01-06 12:33 | PC.NURSE ---
labs drawn and sent to lab, pt ambulatory to restroom without complications.
--- NOTE | 2023-01-06 12:36 | PC.NURSE ---
UA sent to lab, pt given a warm blanket with call light in reach
[2023-01-06 12:39] LABS: Microscopic, Urine URINE MICROSCOPIC (MICROSCOPIC)
[2023-01-06 12:41] LABS: Appearance,Urine CLEAR (Clear); Bilirubin,Urine Negative (Negative); Blood, Urine Negative (Negative); Color,Urine YELLOW (Yellow); Glucose,Urine (UA) Negative (Negative); Ketones,Urine Negative (Negative); Leukocyte Esterase,Urine TRACE (Negative); Nitrate,Urine Negative (Negative); PH,Urine 6.5 (5.0-8.5); Protein,Urine Negative (Negative); Specific Gravity, Urine <= 1.005 (1.005-1.030); Urobilinogen,Urine 0.2 EU/dl (0.2)
[2023-01-06 12:45] LABS: Basophils # 0.1 K/mm3 (0-0.2); Basophils % 1.4 % (0.1-2.0); Eosinophils # 0.1 K/mm3 (0.0-0.4); Hemoglobin 14.6 g/dL (12.2-16.2); Lymphocytes # 1.5 K/mm3 (0.7-4.5); Lymphocytes % 24.1 % (10-50); Mean Corpuscular HGB Conc 31.6 g/dL (31.8-35.4); Mean Corpuscular Hemoglobin 28.8 pg (27.0-31.2); Mean Corpuscular Volume 90.9 fl (81-99); Mean Platelet Volume 9.1 fl (7.4-10.4); Monocytes # 0.3 K/mm3 (0.1-1.0); Monocytes % 5.1 % (1.7-9.3); Neutrophils # 4.4 K/mm3 (1.8-7.8); Neutrophils % 68.8 % (37.0-80.0); Platelet Count 235 K/mm3 (142-424); Red Blood Count 5.06 M/mm3 (4.20-5.40); Red Cell Distribution Width 14.6 % (11.5-17.5); White Blood Count 6.4 K/mm3 (4.8-10.8)
[2023-01-06 12:47] LABS: Chloride 108 mmol/L (98-107); Sodium 143 mmol/L (136-145)
[2023-01-06 12:48] LABS: Potassium 3.1 mmoL/L (3.5-5.1)
[2023-01-06 12:50] LABS: Alanine Aminotransferase 19 U/L (12-78); Albumin Level 4.4 g/dl (3.5-5.0); Albumin/Globulin Ratio 1.4 (1.1-1.8); Alkaline Phosphatase 70 U/L (38-126); Anion Gap 12.1 mEq/L (5-15); Aspartate Amino Transferase 29 U/L (14-36); Bilirubin,Total 1.5 mg/dl (0.2-1.3); Blood Urea Nitrogen 10 mg/dl (7-17); Calcium 8.9 mg/dl (8.4-10.2); Carbon Dioxide 26 mmol/L (22.0-30.0); Creatinine Clearance Estimated 47 mL/min (50-200); Estimated Glomerular Filt Rate 99 ml/min (>60); GFR (African American) 120 ML/MIN (>60); Globulin 3.1 g/dL (1.3-3.2); Glucose 115 mg/dl (74-100); Total Protein,Serum 7.5 g/dl (6.3-8.2)
[2023-01-06 12:53] LABS: Benzodiazepines Screen,Urine Negative ng/ml (<200)
[2023-01-06 12:54] LABS: Amphetamine/Metha Screen,Urine Negative ng/ml (<1000); Barbiturates Screen,Urine Negative ng/ml (<200)
[2023-01-06 12:56] LABS: Opiate Screen,Urine Negative ng/ml (<300); Phencyclidine Screen,Urine Negative ng/ml (<25)
[2023-01-06 12:57] LABS: Cannabinoid Screen,Urine Negative ng/ml (<50)
[2023-01-06 12:58] LABS: Cocaine Screen,Urine Negative ng/ml (<300)
[2023-01-06 12:59] LABS: Methadone Screen,Urine Negative ng/ml (<300)
[2023-01-06 13:05] LABS: Bacteria,Urine 1+ /lpf; Squamous Epithelial Cell,Urine Occasional #/hpf (0-5); Yeast,Urine 1+ /lpf
--- NOTE | 2023-01-06 13:12 | PC.NURSE ---
called dispatch to see which open pit quarry supervisor was adoption agent. dispatch states judge rosas. called the number given by dispatch to the open pit quarry supervisor. open pit quarry supervisor ralph states he is [place] and has no way to receive it electronically. care management called and recommends to call [facility] office in [place] to see if it can be faxed to them for the open pit quarry supervisor.
--- NOTE | 2023-01-06 14:05 | PC.NURSE ---
rounded on pt she was kneeling in the floor saying god told her to do so and he son was telling her to get up and get back in the bed
--- NOTE | 2023-01-06 14:36 | PC.NURSE ---
pudding/water provided for patient.
--- NOTE | 2023-01-06 15:29 | PC.NURSE ---
paperwork signed by the banking pin adjuster [facility] notified of fax
--- NOTE | 2023-01-06 16:26 | PC.NURSE ---
speaking with [facility] about pt intake
--- NOTE | 2023-01-06 16:37 | PC.NURSE ---
pt is sitting in chair no complaints at this time, stood by as Jorge and I swabbed pt for a covid test
[2023-01-06 16:39] LABS: Coronavirus 19, PCR Not Detected (NotDetected); Influenza A, PCR Not Detected (NotDetected); Influenza B, PCR Not Detected (NotDetected)
--- NOTE | 2023-01-06 17:46 | PC.NURSE ---
pt son catherine speaking with daiana at [facility] [employer] on the phone at this time.
--- NOTE | 2023-01-06 18:05 | PC.NURSE ---
pt on zoom with [facility] at this time
--- NOTE | 2023-01-06 18:44 | PC.NURSE ---
pt has been accepted to [facility]. [facility] mavis will notify dispatch for transport
--- NOTE | 2023-01-06 19:54 | PC.NURSE ---
Called Dispatch for an update on pt transfer forms. States she just emailed to Judge Akbar
--- NOTE | 2023-01-06 19:57 | PC.NURSE ---
Pt given a drink and sandwich
--- NOTE | 2023-01-06 20:08 | PC.NURSE ---
Dispatch called back stated, the Ordering Machine Operator said he already signed paperwork on this patient . I let her know that he signed the 710/711 forms earlier and now the 712/713 were required for pt to be transported. Stated she would let the Ordering Machine Operator know.
== END 2023-01-06 21:06 ==
PROVIDERS: Emergency Provider Emergency Medicine; PCP Family Medicine
DX: R44.0 Auditory hallucinations (principal); R41.82 Altered mental status, unspecified; N39.0 Urinary tract infection, site not specified; Z90.49 Acquired absence of other specified parts of digestive tract; Z20.822 Contact with and (suspected) exposure to COVID-19
CPT/HCPCS: 80053; 80305; 81001; 85025; 99285; C9803; U0003; U0005

== ENCOUNTER 2023-02-13 12:40 | Emergency (ER) | payer MEDICARE, BC, SELFPAY ==
[2023-02-13 12:49] VITALS: BP 119/76; PULSE 85; RESP 16; TEMP 36.1; O2SAT 99; BMI 23.8
--- NOTE | 2023-02-13 12:58 | HMH.EDGENADL ---
Discharge Plan Disposition Patient Disposition: Xfer Psychiatric Hosp Chief Complaint: Psychiatric Symptoms Prescriptions Prescriptions: No Action risperidone 0.25 mg tablet 0.25 mg PO BID Qty: 30 0RF ondansetron 4 MG tablet,disintegrating 4 mg PO BID PRN (Reason: Nausea) Qty: 6 0RF sertraline 25 mg tablet 25 mg PO DAILY Qty: 20 0RF clonazepam 0.5 mg tablet 0.5 mg PO BID Qty: 40 0RF lorazepam 2 MG tablet 2 mg PO TID simvastatin [Zocor] 20 MG tablet 20 mg PO DAILY escitalopram oxalate [Lexapro] 20 MG tablet 20 mg PO BID metoprolol tartrate 25 MG tablet 25 mg PO DAILY omeprazole 20 MG capsule,delayed release(DR/EC) 20 mg PO DAILY levofloxacin 500 MG tablet 500 mg PO DAILY nitrofurantoin monohyd/m-cryst 100 MG capsule 100 mg PO BID Qty: 10 0RF cephalexin 500 mg capsule 500 mg PO TID 5 Days Qty: 15 0RF Referrals Follow up/Referrals: Deyanira Jenkins MD [Primary Care Provider] - See instructions Clinical Impressions Clinical Impression: Psychosis Discharge ED Provider: David Livingston General Adult HPI General Chief complaint: Psychiatric Symptoms Stated complaint: possible UTI, disoriented Time Seen by Provider: 02/13/23 12:50 Mode of Arrival: Ambulatory Source of Information: Relative Limitations: Altered Mental Status Description of Symptoms (Recalled from ER Triage Doc. by RN): Presents via POV with son with concerns of worsening auditory/visual hallucinations and behavioral disturbances that have been progressing since . Son reports patient was discharged from [facility] with medication adjustments after apprx. 1 mon inpatient admission. History of Present Illness HPI narrative: Patient is a 72-year-old with past medical history of bipolar 1, depressed type with psychotic features, neurocognitive disorder, hypertension, previous UTI, hyperlipidemia who presents to the emergency department for evaluation of altered mental status. History is obtained by patient and adult son at bedside. Patient was recently admitted to [facility] for psychosis where she was diagnosed with her bipolar disorder and was discharged on Tuesday with Seroquel. At this time patient was at her baseline, organized. Since Tuesday patient has had declining status where she has had increasing auditory hallucinations that are command in nature telling her to do awful things . She states that she knows they are not there however they are speaking at most times of the day. Patient denies dysuria, other acute complaints at this time. Patient has been compliant with her medications as son is medical guardian. Related Data Home Medications Medication Instructions Recorded Confirmed escitalopram oxalate 20 mg tablet 20 mg PO BID Depression 11/12/18 06/23/22 (Lexapro) lorazepam 2 mg tablet 2 mg PO TID Anxiety 11/12/18 06/23/22 metoprolol tartrate 25 mg tablet 25 mg PO DAILY Hypertension 11/12/18 06/23/22 simvastatin 20 mg tablet (Zocor) 20 mg PO DAILY Cholesterol 11/12/18 06/23/22 omeprazole 20 mg capsule,delayed 20 mg PO DAILY GERD 04/09/22 06/23/22 release levofloxacin 500 mg tablet 500 mg PO DAILY uti 06/1606/23/22 06/23/22 Previous Rx's Medication Instructions Recorded ondansetron 4 mg disintegrating 4 mg PO BID PRN Nausea #6 tabs 05/28/22 tablet nitrofurantoin 100 mg PO BID #10 caps 06/25/22 monohydrate/macrocrystals 100 mg capsule risperidone 0.25 mg tablet 0.25 mg PO BID DEPRESSION AND 06/25/22 ANXIETY #30 tabs clonazepam 0.5 mg tablet 0.5 mg PO BID #40 tabs 10/28/22 sertraline 25 mg tablet 25 mg PO DAILY #20 tabs 10/28/22 cephalexin 500 mg capsule 500 mg PO TID 5 days #15 caps 01/04/23 Allergies Allergy/AdvReac Type Severity Reaction Status Date / Time No Known Allergies Allergy Verified 12/28/18 17:22 [facility] Disclaimer: The information contained in this section may have been updated after the patient was seen, as this informatio
[2023-02-13 13:00] LABS: Microscopic, Urine URINE MICROSCOPIC (MICROSCOPIC)
[2023-02-13 13:02] LABS: Appearance,Urine CLEAR (Clear); Bilirubin,Urine Negative (Negative); Blood, Urine Negative (Negative); Color,Urine YELLOW (Yellow); Glucose,Urine (UA) Negative (Negative); Ketones,Urine Negative (Negative); Leukocyte Esterase,Urine TRACE (Negative); Nitrate,Urine Negative (Negative); Protein,Urine Negative (Negative); Urobilinogen,Urine 0.2 EU/dl (0.2)
--- NOTE | 2023-02-13 13:07 | ECG_ITS ---
APPROVED REPORT Exam: Resting ECG HR:76 bpm ECG Measurements Heart Rate 76 AXES IL 137 P 31 QRSd 89 QRS 21 QT 384 T 23 QTc 415 Conclusion SINUS RHYTHM NORMAL ECG UNCONFIRMED REPORT Electronically signed by : Desmond Everett MD 02/13/2023 15:54:20
[2023-02-13 13:08] LABS: Coronavirus 19, PCR Not Detected (NotDetected); Influenza A, PCR Not Detected (NotDetected); Influenza B, PCR Not Detected (NotDetected)
[2023-02-13 13:09] VITALS: BP 124/76; PULSE 80; RESP 18; O2SAT 98
[2023-02-13 13:13] LABS: Basophils % 0.7 % (0.1-2.0); Eosinophils # 0.2 K/mm3 (0.0-0.4); Eosinophils % 2.3 % (0.1-12.0); Hematocrit 41.1 % (37.0-47.0); Lymphocytes # 2.1 K/mm3 (0.7-4.5); Lymphocytes % 32.1 % (10-50); Mean Corpuscular HGB Conc 31.7 g/dL (31.8-35.4); Mean Corpuscular Hemoglobin 28.6 pg (27.0-31.2); Mean Corpuscular Volume 90.4 fl (81-99); Mean Platelet Volume 8.9 fl (7.4-10.4); Monocytes # 0.4 K/mm3 (0.1-1.0); Monocytes % 6.4 % (1.7-9.3); Neutrophils # 3.9 K/mm3 (1.8-7.8); Neutrophils % 58.6 % (37.0-80.0); Platelet Count 211 K/mm3 (142-424); Red Blood Count 4.54 M/mm3 (4.20-5.40); Red Cell Distribution Width 14.7 % (11.5-17.5); White Blood Count 6.7 K/mm3 (4.8-10.8)
[2023-02-13 13:15] LABS: Bacteria,Urine Trace /lpf
[2023-02-13 13:16] LABS: Chloride 110 mmol/L (98-107); Sodium 140 mmol/L (136-145)
[2023-02-13 13:17] LABS: Potassium 3.7 mmoL/L (3.5-5.1)
[2023-02-13 13:19] LABS: Alanine Aminotransferase 18 U/L (12-78); Alkaline Phosphatase 54 U/L (38-126); Aspartate Amino Transferase 19 U/L (14-36); Bilirubin,Total 0.4 mg/dl (0.2-1.3); Blood Urea Nitrogen 17 mg/dl (7-17); Creatinine Clearance Estimated 49 mL/min (50-200); Estimated Glomerular Filt Rate 99 ml/min (>60); GFR (African American) 120 ML/MIN (>60)
[2023-02-13 13:20] LABS: Albumin Level 3.4 g/dl (3.5-5.0); Albumin/Globulin Ratio 1.2 (1.1-1.8); Anion Gap 9.7 mEq/L (5-15); Calcium 8.2 mg/dl (8.4-10.2); Carbon Dioxide 24 mmol/L (22.0-30.0); Globulin 2.8 g/dL (1.3-3.2); Glucose 121 mg/dl (74-100); Total Protein,Serum 6.2 g/dl (6.3-8.2)
[2023-02-13 13:30] VITALS: BP 122/71; PULSE 79; RESP 18; O2SAT 99
[2023-02-13 14:00] VITALS: BP 127/70; PULSE 79; RESP 18; O2SAT 98
[2023-02-13 15:01] VITALS: BP 172/101; PULSE 77; RESP 18; O2SAT 99
--- NOTE | 2023-02-13 16:08 | PC.NURSE ---
Phoned [facility]. It was confirmed they have received the appropriate documentation and will forwards for evaluation.
--- NOTE | 2023-02-13 16:27 | PC.NURSE ---
[facility] currently evaluating patient via zoom meeting
--- NOTE | 2023-02-13 17:07 | PC.NURSE ---
Per Basim Villanueva with [facility], #[phone]. Pt will be dispositioned to [facility]. Mr. Villanueva will complete paperwork and forward to [facility].
[2023-02-13 18:08] VITALS: BP 130/72; PULSE 77; RESP 18; TEMP 36.1; O2SAT 99
--- NOTE | 2023-02-13 18:08 | PC.NURSE ---
Report provided to CHETAN Clifton with [facility] Intake. Documents faxed with confirmation on her behalf and fax confirmation. Copies sent with SO.
== END 2023-02-13 18:10 ==
PROVIDERS: Emergency Provider Emergency Medicine; PCP Family Medicine
DX: F31.5 Bipolar disorder, current episode depressed, severe, with psychotic features (principal)
CPT/HCPCS: 80053; 81001; 85025; 93005; 99285; C9803; U0003; U0005

== ENCOUNTER 2023-07-29 14:26 | Emergency (ER) | payer MEDICARE, BC, SELFPAY ==
[2023-07-29 14:27] VITALS: BP 169/94; PULSE 92; RESP 16; TEMP 36.7; O2SAT 95; BMI 23.4
--- NOTE | 2023-07-29 14:36 | PC.NURSE ---
Dr. Ervin at [facility] for pt eval
--- NOTE | 2023-07-29 14:45 | HMH.EDGENADL ---
Discharge Plan Disposition Patient Disposition: Home, Self-Care Prescriptions Prescriptions: New cefdinir 300 mg capsule 300 mg PO BID 7 Days Qty: 14 0RF No Action risperidone 0.25 mg tablet 0.25 mg PO BID Qty: 30 0RF ondansetron 4 MG tablet,disintegrating 4 mg PO BID PRN (Reason: Nausea) Qty: 6 0RF sertraline 25 mg tablet 25 mg PO DAILY Qty: 20 0RF clonazepam 0.5 mg tablet 0.5 mg PO BID Qty: 40 0RF lorazepam 2 MG tablet 2 mg PO TID simvastatin [Zocor] 20 MG tablet 20 mg PO DAILY escitalopram oxalate [Lexapro] 20 MG tablet 20 mg PO BID metoprolol tartrate 25 MG tablet 25 mg PO DAILY omeprazole 20 MG capsule,delayed release(DR/EC) 20 mg PO DAILY levofloxacin 500 MG tablet 500 mg PO DAILY nitrofurantoin monohyd/m-cryst 100 MG capsule 100 mg PO BID Qty: 10 0RF cephalexin 500 mg capsule 500 mg PO TID 5 Days Qty: 15 0RF Referrals Follow up/Referrals: Deyanira Jenkins MD [Primary Care Provider] - See instructions Clinical Impressions Clinical Impression: UTI (urinary tract infection), Dementia, Dysuria Instructions Patient Instructions: DI for Urinary Tract Infection (UTI), DI for Urinary Tract Infection in Children Discharge ED Provider: Alycia Ervin General Adult HPI General Chief complaint: Urogenital-Female Stated complaint: poss uti Time Seen by Provider: 07/29/23 14:36 Mode of Arrival: Ambulatory Source of Information: Patient Limitations: No Limitations Description of Symptoms (Recalled from ER Triage Doc. by RN): Presents to ED with son who reports patient has dementia and reports patient having increased visual and auditory hallucination . Patient's son reports patient returned from [facility] a month ago and noticied she was not taking a few of her daily medications. He reports patient has been on all medications for the last week. Patient reports she did not sleep last night and further reports dysuria and urinary urgency. Patient report she does not understand why she is here she is just tired. History of Present Illness HPI narrative: Patient is a 72-year-old female with history of chronic dementia with chronic auditory and visual hallucinations recently got discharged from [facility] after a 5-month hospitalization there presents today with her son for worsening of her symptoms. The patient states she has had some dysuria but the son states when she has urinary tract infections in the past that it worsens her dementia symptoms. He believes this is what is going on with her today. She denies any abdominal pain fevers chills or any other symptoms. Son also states she has had no other symptoms. He is still currently able to care for her at home. No injuries to her head that he is aware of. No changes in medications recently. No nausea vomiting diarrhea. Related Data Home Medications Medication Instructions Recorded Confirmed escitalopram oxalate 20 mg tablet 20 mg PO BID Depression 11/12/18 06/23/22 (Lexapro) lorazepam 2 mg tablet 2 mg PO TID Anxiety 11/12/18 06/23/22 metoprolol tartrate 25 mg tablet 25 mg PO DAILY Hypertension 11/12/18 06/23/22 simvastatin 20 mg tablet (Zocor) 20 mg PO DAILY Cholesterol 11/12/18 06/23/22 omeprazole 20 mg capsule,delayed 20 mg PO DAILY GERD 04/09/22 06/23/22 release levofloxacin 500 mg tablet 500 mg PO DAILY uti 06/1606/23/22 06/23/22 Previous Rx's Medication Instructions Recorded ondansetron 4 mg disintegrating 4 mg PO BID PRN Nausea #6 tabs 05/28/22 tablet nitrofurantoin 100 mg PO BID #10 caps 06/25/22 monohydrate/macrocrystals 100 mg capsule risperidone 0.25 mg tablet 0.25 mg PO BID DEPRESSION AND 06/25/22 ANXIETY #30 tabs clonazepam 0.5 mg tablet 0.5 mg PO BID #40 tabs 10/28/22 sertraline 25 mg tablet 25 mg PO DAILY #20 tabs 10/28/22 cephalexin 500 mg capsule 500 mg PO TID 5 days #15 caps 01/04/23 cefdinir 300 mg capsule 300 mg PO BID 7 days #14 caps
[2023-07-29 14:56] LABS: Microscopic, Urine URINE MICROSCOPIC (MICROSCOPIC)
[2023-07-29 15:00] LABS: Appearance,Urine CLEAR (Clear); Bilirubin,Urine Negative (Negative); Blood, Urine TRACE-I (Negative); Color,Urine YELLOW (Yellow); Glucose,Urine (UA) Negative (Negative); Ketones,Urine Negative (Negative); Leukocyte Esterase,Urine 2+ (Negative); Nitrate,Urine POSITIVE (Negative); Protein,Urine Negative (Negative); Specific Gravity, Urine 1.025 (1.005-1.030)
[2023-07-29 15:14] LABS: Bacteria,Urine 3+ /lpf; RBC,Urine Occasional #/hpf (0-3)
[2023-07-29 15:24] VITALS: BP 168/102; PULSE 93; RESP 16; TEMP 36.7; O2SAT 95
== END 2023-07-29 15:27 | disposition home or self-care (01) ==
PROVIDERS: Emergency Provider Student in an Organized Health Care Education/Training Program; PCP Family Medicine
DX: N39.0 Urinary tract infection, site not specified (principal); F03.92 Unspecified dementia, unspecified severity, with psychotic disturbance; R44.0 Auditory hallucinations; R44.1 Visual hallucinations; Z87.891 Personal history of nicotine dependence
CPT/HCPCS: 81001; 87086; 87088; 87186; 99283

== ENCOUNTER 2023-08-06 04:10 | Emergency (ER) | payer MEDICARE, BC, SELFPAY ==
[2023-08-06 04:13] VITALS: BP 140/77; PULSE 74; RESP 22; TEMP 36.6; O2SAT 97; BMI 23.2
[2023-08-06 04:19] VITALS: BP 140/77; PULSE 75; O2SAT 97
--- NOTE | 2023-08-06 04:19 | PC.NURSE ---
in room talking with patient at this time.
--- NOTE | 2023-08-06 04:26 | HMH.EDPSYCH ---
Discharge Plan Disposition Patient Disposition: Home, Self-Care Prescriptions Prescriptions: New haloperidol 2 mg tablet 2 mg PO BID Qty: 10 0RF No Action donepezil 5 mg tablet 5 mg PO BID atorvastatin 10 mg tablet 10 mg PO DAILY Patient Comments: TAKE ONE TABLET BY MOUTH EVERY DAY AT BEDTIME omeprazole 20 mg capsule,delayed release(DR/EC) 20 mg PO DAILY memantine 10 mg tablet 10 mg PO BID metoprolol tartrate 25 MG tablet 25 mg PO DAILY omeprazole 20 MG capsule,delayed release(DR/EC) 20 mg PO DAILY Referrals Follow up/Referrals: Deyanira Jenkins MD [Primary Care Provider] - See instructions Activity Restrictions/Add. Instructions Additional Instructions/Restrictions: Follow-up with your primary care doctor in the next 2 to 3 days if symptoms do not improve. Work-up today in the emergency department did not reveal any life-threatening conditions. You have been prescribed some haloperidol which helps with the agitation. Please take all medications as prescribed. We asked the lab to check the level of the Depakote/valproic acid which was recently increased by your doctor. However, this is a test which needs to be sent to another laboratory outside of this hospital. Therefore, results are still pending. Please return to the emergency department immediately if symptoms worsen in any way. Clinical Impressions Clinical Impression: Acute psychosis Instructions Patient Instructions: Dementia, Anxiety Disorders Discharge ED Provider: Mary Jo Mercer HPI General Chief Complaint: Psychiatric Symptoms Stated Complaint: Hullications Time Seen by Provider: 08/06/23 04:18 Mode of Arrival: Family Vehicle Source of Information: Patient and Relative Limitations: Altered Mental Status History of Present Illness HPI Narrative: The patient presents to the emergency department brought in by her son for apparent hallucinations and aggressive behavior. The patient has a history of dementia. She also has a recent diagnosis of urinary tract infection for which she has been on an antibiotic for approximately 1 week. She has become more altered in the last 2 to 3 days according to the son. The patient was also recently evaluated by psychiatrist as an outpatient who believes that the patient's symptoms may be due to delirium stemming from the recently diagnosed UTI. According to the son there has been no vomiting, diarrhea, fever, abdominal pain, chest pain, shortness of breath. Related Data Home Medications Medication Instructions Recorded Confirmed metoprolol tartrate 25 mg tablet 25 mg PO DAILY Hypertension 11/12/18 08/06/23 omeprazole 20 mg capsule,delayed 20 mg PO DAILY GERD 04/09/22 08/06/23 release atorvastatin 10 mg tablet 10 mg PO DAILY HLD 08/06/23 08/06/23 donepezil 5 mg tablet 5 mg PO BID dementia 08/06/23 08/06/23 memantine 10 mg tablet 10 mg PO BID dementia 08/06/23 08/06/23 omeprazole 20 mg capsule,delayed 20 mg PO DAILY gerd 08/06/23 08/06/23 release Previous Rx's Medication Instructions Recorded haloperidol 2 mg tablet 2 mg PO BID #10 tabs 08/06/23 Allergies Allergy/AdvReac Type Severity Reaction Status Date / Time No Known Allergies Allergy Verified 12/28/18 17:22 [facility] Disclaimer: The information contained in this section may have been updated after the patient was seen, as this information can be updated by other users. Surgical History History of cholecystectomy Social History Smoking Status: Former smoker alcohol intake: never substance use type: denies use current occupational status: other Travel in the last 8 weeks: None household members: other ROS Obtained: Yes All systems reviewed & no additional complaints except as documented Physical Exam General General appearance: alert and in no apparent dis
[2023-08-06 04:31] VITALS: BP 147/79
[2023-08-06 04:39] VITALS: BMI 23.2
[2023-08-06 04:42] LABS: Microscopic, Urine URINE MICROSCOPIC (MICROSCOPIC)
[2023-08-06 04:44] LABS: Basophils # 0.1 K/mm3 (0-0.2); Basophils % 0.7 % (0.1-2.0); Eosinophils # 0.2 K/mm3 (0.0-0.4); Eosinophils % 3.1 % (0.1-12.0); Hematocrit 45.5 % (37.0-47.0); Hemoglobin 13.9 g/dL (12.2-16.2); Lymphocytes # 2.6 K/mm3 (0.7-4.5); Lymphocytes % 33.3 % (10-50); Mean Corpuscular HGB Conc 30.6 g/dL (31.8-35.4); Mean Corpuscular Hemoglobin 28.4 pg (27.0-31.2); Mean Corpuscular Volume 92.7 fl (81-99); Mean Platelet Volume 9.2 fl (7.4-10.4); Monocytes # 0.5 K/mm3 (0.1-1.0); Monocytes % 5.9 % (1.7-9.3); Neutrophils # 4.4 K/mm3 (1.8-7.8); Neutrophils % 57.1 % (37.0-80.0); Platelet Count 190 K/mm3 (142-424); Red Cell Distribution Width 14.1 % (11.5-17.5); White Blood Count 7.8 K/mm3 (4.8-10.8)
[2023-08-06 04:45] LABS: Appearance,Urine CLEAR (Clear); Bilirubin,Urine Negative (Negative); Blood, Urine Negative (Negative); Color,Urine YELLOW (Yellow); Glucose,Urine (UA) Negative (Negative); Ketones,Urine 1+ (Negative); Leukocyte Esterase,Urine TRACE (Negative); Nitrate,Urine Negative (Negative); Protein,Urine Negative (Negative); Specific Gravity, Urine 1.015 (1.005-1.030)
[2023-08-06 04:48] LABS: Chloride 107 mmol/L (98-107); Sodium 140 mmol/L (136-145)
[2023-08-06 04:51] LABS: Alanine Aminotransferase 13 U/L (12-78); Alkaline Phosphatase 62 U/L (38-126); Aspartate Amino Transferase 22 U/L (14-36); Bilirubin,Total 1.5 mg/dl (0.2-1.3); Blood Urea Nitrogen 23 mg/dl (7-17); Creatinine Clearance Estimated 49 mL/min (50-200); Estimated Glomerular Filt Rate 83 ml/min (>60); GFR (African American) 100 ML/MIN (>60)
[2023-08-06 04:52] LABS: Albumin Level 3.4 g/dl (3.5-5.0); Albumin/Globulin Ratio 1.3 (1.1-1.8); Calcium 8.5 mg/dl (8.4-10.2); Carbon Dioxide 30 mmol/L (22.0-30.0); Globulin 2.7 g/dL (1.3-3.2); Glucose 96 mg/dl (74-100); Lactic Acid 1.3 mmol/L (0.7-2.1); Total Protein,Serum 6.1 g/dl (6.3-8.2)
--- NOTE | 2023-08-06 04:55 | PC.NURSE ---
While reviewing medications with son, he states on her Psychiatrist changed her Depakote 125mg from bid (am /pm) to Depakote 250mg (am) and 500mg (pm). Dr Mcgraw aware, adding valproic acid level.
[2023-08-06 04:57] LABS: Amphetamine/Metha Screen,Urine Negative ng/ml (<1000); Barbiturates Screen,Urine Negative ng/ml (<200)
[2023-08-06 04:58] LABS: Benzodiazepines Screen,Urine Negative ng/ml (<200)
[2023-08-06 04:59] LABS: Cannabinoid Screen,Urine Negative ng/ml (<50); Cocaine Screen,Urine Negative ng/ml (<300)
[2023-08-06 05:00] LABS: Bacteria,Urine Trace /lpf; Methadone Screen,Urine Negative ng/ml (<300); Squamous Epithelial Cell,Urine Occasional #/hpf (0-5)
[2023-08-06 05:01] LABS: Opiate Screen,Urine Negative ng/ml (<300); Phencyclidine Screen,Urine Negative ng/ml (<25)
[2023-08-06 05:26] VITALS: BP 142/70; PULSE 74; RESP 20; TEMP 36.6; O2SAT 97
[2023-08-06 06:09] LABS: Valproic Acid, (Depakene) 53.8 ug/ml (50-100)
== END 2023-08-06 05:27 | disposition home or self-care (01) ==
PROVIDERS: Emergency Provider Emergency Medicine; PCP Family Medicine
DX: F03.92 Unspecified dementia, unspecified severity, with psychotic disturbance (principal); F03.918 Unspecified dementia, unspecified severity, with other behavioral disturbance; R44.3 Hallucinations, unspecified; Z87.891 Personal history of nicotine dependence
CPT/HCPCS: 80053; 80164; 80305; 81001; 83605; 85025; 96372; 99285

== ENCOUNTER 2023-08-12 16:41 | Emergency (ER) | payer MEDICARE, BC, SELFPAY ==
[2023-08-12] VITALS (10 sets, daily range): BP systolic 111–152; BP diastolic 62–81; PULSE 55–73; RESP 14–16; TEMP 36.7; O2SAT 96–97; BMI 23.0
--- NOTE | 2023-08-12 16:43 | HMH.EDGENADL ---
Discharge Plan Disposition Chief Complaint: Psychiatric Symptoms Prescriptions Prescriptions: No Action donepezil 5 mg tablet 5 mg PO DAILY atorvastatin 10 mg tablet 10 mg PO DAILY Patient Comments: TAKE ONE TABLET BY MOUTH EVERY DAY AT BEDTIME omeprazole 20 mg capsule,delayed release(DR/EC) 20 mg PO DAILY memantine 10 mg tablet 10 mg PO BID haloperidol 2 mg tablet 2 mg PO BID Qty: 10 0RF metoprolol tartrate 25 MG tablet 25 mg PO DAILY omeprazole 20 MG capsule,delayed release(DR/EC) 20 mg PO DAILY divalproex 125 mg capsule, delayed rel sprinkle 125 mg PO BID Patient Comments: TAKE TWO CAPSULES BY MOUTH TWICE DAILY Referrals Follow up/Referrals: Deyanira Jenkins MD [Primary Care Provider] - See instructions Discharge ED Provider: Ivan Fofana Adult HPI <Ivan Fofana MD - Last Filed: 08/13/23 01:46> General Chief complaint: Psychiatric Symptoms Stated complaint: hallucinations Time Seen by Provider: 08/12/23 16:42 History of Present Illness HPI narrative: The patient presents with a chief complaint of severe delirium, which has been ongoing for several days. The patient's mother reports an increase in auditory and visual hallucinations. The patient has a history of urinary infection two weeks ago, but a follow-up visit last week indicated no current infection. The patient has been under the care of a psychiatrist in [place] and has a history of delirium lasting over a year. The patient has previously been admitted to [facility] for treatment and medication management. The patient has a diagnosis of neurocognitive decline, post-traumatic stress, anxiety, and bipolar depression. The patient's current medications include Depakote (125 mg, two tablets in the morning and four at night) and Haloperidol (2 mg, twice a day). The patient's mother reports that the patient has been experiencing increased agitation, screaming about her brother and sister being in the house, throwing things, and wanting to go outside at night. The patient also believes her sister is pumping methane gas into the house when the air conditioner is on. The patient denies any pain in her belly area but reports not having eaten for months. The patient's mother reports no recent falls or injuries. Related Data Home Medications Medication Instructions Recorded Confirmed metoprolol tartrate 25 mg tablet 25 mg PO DAILY Hypertension 11/12/18 08/13/23 omeprazole 20 mg capsule,delayed 20 mg PO DAILY GERD 04/09/22 08/13/23 release atorvastatin 10 mg tablet 10 mg PO DAILY HLD 08/06/23 08/13/23 donepezil 5 mg tablet 5 mg PO DAILY dementia 08/06/23 08/13/23 memantine 10 mg tablet 10 mg PO BID dementia 08/06/23 08/13/23 omeprazole 20 mg capsule,delayed 20 mg PO DAILY gerd 08/06/23 08/13/23 release divalproex 125 mg capsule,delayed 125 mg PO BID 08/13/23 08/13/23 release sprinkle Previous Rx's Medication Instructions Recorded haloperidol 2 mg tablet 2 mg PO BID #10 tabs 08/06/23 Allergies Allergy/AdvReac Type Severity Reaction Status Date / Time No Known Allergies Allergy Verified 12/28/18 17:22 [facility] <Ivan Fofana MD - Last Filed: 08/13/23 01:46> [facility] Disclaimer: The information contained in this section may have been updated after the patient was seen, as this information can be updated by other users. Surgical History History of cholecystectomy Social History Smoking Status: Unknown if ever smoked alcohol intake: never substance use type: denies use current occupational status: other Travel in the last 8 weeks: None household members: other <Ivan Fofana MD - Last Filed: 08/13/23 01:46> ROS Obtained: Yes Systems reviewed as appropriate & no additional complaints except as documented As per HPI Physical Exam <Ivan Fofana MD -
--- NOTE | 2023-08-12 17:58 | PC.NURSE ---
ER MD Fofana at
--- NOTE | 2023-08-12 18:09 | CT_ITS ---
PROCEDURE INFORMATION: Exam: CT Abdomen And Pelvis Without Contrast Exam date and time: 08/12/2023 6:49 PM Age: 72 years old Clinical indication: Abdominal pain and other: Back; Additional info: AMS, abdominal pain TECHNIQUE: Imaging protocol: Computed tomography of the abdomen and pelvis without contrast. Radiation optimization: All CT scans at this facility use at least one of these dose optimization techniques: automated exposure control; mA and/or kV adjustment per patient size (includes targeted exams where dose is matched to clinical indication); or iterative reconstruction. REPORTING DATA: Count of CT and Cardiac NM exams in prior 12 months: This patient has received [address] and 0 known cardiac nuclear medicine studies in the 12 months prior to the current study. COMPARISON: CT ANGIO CHEST PE PROTOCOL 01/04/2023 7:23 PM FINDINGS: Diaphragm: Large hiatal hernia. Liver: Normal. No mass. Gallbladder and bile ducts: Cholecystectomy Pancreas: Normal. No ductal dilation. Spleen: Normal. No splenomegaly. Adrenal glands: Normal. No mass. Kidneys and ureters: Punctate non-obstructing left renal stone. No hydronephrosis Stomach and bowel: Unremarkable. No obstruction. No mucosal thickening. Appendix: No evidence of appendicitis. Intraperitoneal space: Unremarkable. No free air. No significant fluid collection. Vasculature: Unremarkable. No abdominal aortic aneurysm. Lymph nodes: Unremarkable. No enlarged lymph nodes. Urinary bladder: Unremarkable as visualized. Reproductive: Unremarkable as visualized. Bones/joints: Unremarkable. No acute fracture. Soft tissues: Unremarkable. IMPRESSION: No acute findings.
--- NOTE | 2023-08-12 18:12 | CT_ITS ---
PROCEDURE INFORMATION: Exam: CT Head Without Contrast Exam date and time: 08/12/2023 6:53 PM Age: 72 years old Clinical indication: Altered mental status/memory loss and psychosis or psychotic disorder; Confusion or disorientation; Unspecified; Additional info: AMS, subacute, confused and agitated TECHNIQUE: Imaging protocol: Computed tomography of the head without contrast. Radiation optimization: All CT scans at this facility use at least one of these dose optimization techniques: automated exposure control; mA and/or kV adjustment per patient size (includes targeted exams where dose is matched to clinical indication); or iterative reconstruction. REPORTING DATA: Count of CT and Cardiac NM exams in prior 12 months: This patient has received [address] and 0 known cardiac nuclear medicine studies in the 12 months prior to the current study. COMPARISON: CT HEAD/BRAIN WO CON 06/16/2022 12:49 AM FINDINGS: Brain: Moderate generalized cerebral/cerebellar atrophy. Moderate bilateral white matter hypodensities which are nonspecific but most commonly associated with chronic microvascular ischemia in this age group. The IACs are grossly normal. Mild prominence of the peripheral CSF spaces, felt to be related to generalized atrophy. Probable small chronic arachnoid cysts are present in the anterior portion of each middle cranial fossa, slightly larger on the right, measuring 2.5 x 1.7 cm on the right and 1.9 x 1.0 cm on the left. Slight anterior bony expansion with no evidence of optic canal stenosis. No evidence of acute intracranial hemorrhage. No CT evidence of large territory acute or subacute intracranial ischemia/infarct. 7 mm dural-based calcification in the left parietal distribution could represent degenerative dural calcification or possibly a very small densely calcified meningioma, unchanged with no mass effect. No midline shift or herniation. Cerebral ventricles: Mild compensatory ventriculomegaly secondary to central atrophy. Pituitary gland and sella: The sella is grossly normal. Paranasal sinuses: Visualized paranasal sinuses are clear. Mastoid air cells: Visualized mastoid air cells are clear. Orbital cavities: No acute intraorbital findings. Bones/joints: The calvarium and visualized facial bones are intact. Mild bilateral TMJ osteoarthritic changes. Soft tissues: Localized dermal thickening over the right frontotemporal distribution on axial series 3, image 52 involving zone about 2.7 cm in diameter and 3 mm in thickness. The area of involvement is increased in size from 06/16/2022. Correlate clinically to exclude features of dermal malignancy. No underlying bony abnormality. Vasculature: Mild calcific atherosclerosis. No asymmetric vascular hyperdensities suggestive of thrombosis are identified. Other findings: Langston-white matter differentiation is well maintained. IMPRESSION: 1. No acute intracranial process. No intracranial hemorrhage. 2. Atrophy and microvascular changes consistent with age. 3. Localized dermal thickening involving a 2.7 cm area in the right frontotemporal scalp which is mildly increased in size from 06/16/2022, correlate clinically to exclude features of dermal malignancy. 4. Small bilateral chronic arachnoid cysts in the middle cranial fossae.
--- NOTE | 2023-08-12 18:12 | XR_ITS ---
PROCEDURE INFORMATION: Exam: XR Chest Exam date and time: 08/12/2023 7:18 PM Age: 72 years old Clinical indication: Pain; Chest pressure; Additional info: AMS, delerium TECHNIQUE: Imaging protocol: Radiologic exam of the chest. Views: 1 view. COMPARISON: CR XR CHEST PORTABLE 01/04/2023 5:55 PM FINDINGS: Lungs: Left lung base areas of atelectasis. No consolidation. Pleural spaces: Unremarkable. No pleural effusion. No pneumothorax. Heart/Mediastinum: Unremarkable. No cardiomegaly. Bones/joints: Unremarkable. IMPRESSION: No acute findings.
[2023-08-12 18:45] LABS: Basophils % 0.7 % (0.1-2.0); Eosinophils # 0.1 K/mm3 (0.0-0.4); Eosinophils % 1.7 % (0.1-12.0); Hematocrit 42.6 % (37.0-47.0); Hemoglobin 13.6 g/dL (12.2-16.2); Lymphocytes # 1.7 K/mm3 (0.7-4.5); Lymphocytes % 27.4 % (10-50); Mean Corpuscular Hemoglobin 28.9 pg (27.0-31.2); Mean Corpuscular Volume 90.2 fl (81-99); Monocytes # 0.3 K/mm3 (0.1-1.0); Monocytes % 5.7 % (1.7-9.3); Neutrophils # 3.9 K/mm3 (1.8-7.8); Neutrophils % 64.5 % (37.0-80.0); Platelet Count 162 K/mm3 (142-424); Red Blood Count 4.72 M/mm3 (4.20-5.40); Red Cell Distribution Width 13.9 % (11.5-17.5)
[2023-08-12 18:47] LABS: Chloride 104 mmol/L (98-107); Potassium 3.8 mmoL/L (3.5-5.1); Sodium 137 mmol/L (136-145)
[2023-08-12 18:49] LABS: Alanine Aminotransferase 13 U/L (12-78); Alkaline Phosphatase 65 U/L (38-126); Anion Gap 8.8 mEq/L (5-15); Aspartate Amino Transferase 20 U/L (14-36); Bilirubin,Total 1.2 mg/dl (0.2-1.3); Blood Urea Nitrogen 13 mg/dl (7-17); Carbon Dioxide 28 mmol/L (22.0-30.0); Creatinine Clearance Estimated 49 mL/min (50-200); Estimated Glomerular Filt Rate 99 ml/min (>60); GFR (African American) 120 ML/MIN (>60)
[2023-08-12 18:50] LABS: Albumin Level 3.1 g/dl (3.5-5.0); Albumin/Globulin Ratio 1.2 (1.1-1.8); Calcium 8.1 mg/dl (8.4-10.2); Globulin 2.6 g/dL (1.3-3.2); Glucose 87 mg/dl (74-100); Lipase 73 U/L (23-300); Magnesium 1.7 mg/dl (1.6-2.3); Phosphorous 3.7 mg/dl (2.5-4.5); Total Protein,Serum 5.7 g/dl (6.3-8.2)
[2023-08-12 18:51] LABS: Acetaminophen < 10 ug/ml (10-30); Creatine Kinase < 20 U/L (30-135); Salicylate < 1.0 mg/dL (2.0-20.0)
[2023-08-12 19:08] LABS: Free T4 (Free Thyroxine) 1.38 ng/dl (0.78-2.19)
[2023-08-12 19:20] LABS: Thyroid Stimulating Hormone 1.36 uIU/mL (0.465-4.68)
[2023-08-12 20:10] LABS: Microscopic, Urine URINE MICROSCOPIC (MICROSCOPIC)
[2023-08-12 20:24] LABS: Appearance,Urine CLEAR (Clear); Blood, Urine TRACE-I (Negative); Color,Urine YELLOW (Yellow); Glucose,Urine (UA) Negative (Negative); Ketones,Urine 2+ (Negative); Leukocyte Esterase,Urine Negative (Negative); Nitrate,Urine Negative (Negative); PH,Urine 6.5 (5.0-8.5); Protein,Urine Negative (Negative)
[2023-08-12 20:30] LABS: Bilirubin,Urine 1+ (Negative)
[2023-08-12 20:36] LABS: WBC,Urine Occasional #/hpf (0-3)
[2023-08-12 20:37] LABS: Amphetamine/Metha Screen,Urine Negative ng/ml (<1000)
[2023-08-12 20:38] LABS: Barbiturates Screen,Urine Negative ng/ml (<200); Benzodiazepines Screen,Urine Negative ng/ml (<200)
[2023-08-12 20:40] LABS: Cannabinoid Screen,Urine Negative ng/ml (<50); Cocaine Screen,Urine Negative ng/ml (<300)
[2023-08-12 20:41] LABS: Methadone Screen,Urine Negative ng/ml (<300)
[2023-08-12 21:34] LABS: Ethyl Alcohol < 10 mg/dl (0-10)
--- NOTE | 2023-08-12 23:17 | PC.NURSE ---
paperwork has been notorized
--- NOTE | 2023-08-12 23:22 | PC.NURSE ---
faxed [facility] [phone] paperwork to ulisses louise for dishwasher busser review
--- NOTE | 2023-08-12 23:34 | PC.NURSE ---
cussing family and staff kicking and yelling.
--- NOTE | 2023-08-12 23:40 | PC.NURSE ---
round made nothing needed at this time
--- NOTE | 2023-08-13 00:04 | PC.WOUNDNOTE ---
trying to get out bed and cussing the staff.
[2023-08-13 01:27] LABS: Opiate Screen,Urine Negative ng/ml (<300)
[2023-08-13 01:28] LABS: Phencyclidine Screen,Urine Negative ng/ml (<25)
[2023-08-13 03:03] VITALS: BP 107/50; PULSE 67; RESP 18; O2SAT 96
--- NOTE | 2023-08-13 03:03 | PC.NURSE ---
waiting on return call from [facility].
--- NOTE | 2023-08-13 04:18 | PC.NURSE ---
mary reid received paperwork and are stating they will speak first to the son and then the patient if possible.
--- NOTE | 2023-08-13 05:35 | PC.NURSE ---
[employer] [place] [employer] called for telehealth consult. Consult completed, novelties sales representative states he will start processing paper work and the tip stitcher will pick patient up.
--- NOTE | 2023-08-13 07:24 | PC.NURSE ---
PD transporting pt to [facility] via Police dept.
[2023-08-13 07:29] VITALS: BP 116/78; PULSE 100; RESP 20; TEMP 37.1; O2SAT 97
--- NOTE | 2023-08-13 07:47 | PC.NURSE ---
Gave report to Jaye RN @ [facility]
== END 2023-08-13 07:47 ==
PROVIDERS: Emergency Provider Emergency Medicine; PCP Family Medicine
DX: F29 Unspecified psychosis not due to a substance or known physiological condition (principal); F31.9 Bipolar disorder, unspecified; F43.10 Post-traumatic stress disorder, unspecified; F41.9 Anxiety disorder, unspecified; R45.1 Restlessness and agitation
CPT/HCPCS: 70450; 71045; 74176; 80053; 80305; 80329; 81001; 82550; 83690; 83735; 84100; 84439; 84443; 85025; 96374; 99285